=== PATIENT | male | born 1960 | race Caucasian/White ===

== ENCOUNTER 2019-02-05 14:30 | Inpatient (IN) ==
[2019-02-05] MEDS ORDERED: MORPHINE IV ONE ×2 (15:24→16:34)
[2019-02-05] MEDS ORDERED: ZOFRAN IM ONE (15:25)
--- NOTE | 2019-02-05 15:34 | PROVIDER DOCUMENTATION ---
HPI-Abdominal Pain/GI Problem - General Chief Complaint: Abdominal Pain Stated Complaint: ABDOMINAL PAIN Time Seen by Provider: 02/05/19 15:11 Source: patient, family Allergies/Adverse Reactions: Patient Allergies Allergy/AdvReac Type Severity Reaction Status Date / Time No Known Allergies Allergy Verified 11/28/18 09:48 Home Medications: Home Medication List Medication Instructions Recorded Confirmed Last Taken Type PRAVAstatin [Pravachol] 40 mg PO QHS 11/28/18 02/05/19 Unknown History Lansoprazole 30 mg PO QHS 02/05/19 02/05/19 Unknown History - History of Present Illness-ABD Nature of Presenting Problems: 58yo male with PMH of kidney stones and colon infection with resection presents with acute onset of abdominal pain. The patient reports onset of the pain at 7am with radiation to the back and association with nausea. The pain was modified with movment. The patient denies diarrhea or bloody stools. Abdominal Pain Onset Location: reports: generalized abdomen Pain Radiation: reports: back Onset/Duration: reports: this morning Timing: reports: still present Modifying Factors: improves with: movement Associated Symptoms: reports: back/neck pain, nausea Last BM: this morning Rectal Bleeding: reports: none # of Vomiting Episodes: 0 Review of Systems - Adult - REVIEW OF SYSTEMS - ADULT Constitutional: reports: fever (unmeasured) Eyes: denies: blurred vision Cardiovascular: reports: chest pain Respiratory: reports: cough Gastrointestinal: reports: abdominal pain, nausea. denies: diarrhea, vomiting Genitourinary: reports: dysuria Musculoskeletal: reports: back pain Integumentary: denies: rash Neurological: reports: numbness Allergic/Immunologic: reports: no symptoms reported (no allergies) Past History - Adult - PAST MEDICAL HISTORY-ADULT Review of Records: reports: Old Records Reviewed Cardiovascular: reports: hyperlipidemia Respiratory: reports: denies history Gastrointestinal: reports: other (colon resection after infection) Genitourinary: reports: kidney stones Musculoskeletal: reports: chronic pain Neurological: reports: denies history Psychiatric: reports: denies history Endocrine/Immune: reports: denies history Other Conditions: reports: denies history - PRIOR SURGERIES/PROCEDURES Surgical/Procedure History: reports: other (colon resection for cancer) - FAMILY HISTORY Family History: CVA/TIA, other (CAD) - SOCIAL HISTORY Smoking: denies Substance Use: other (Denies) Alcohol Use Frequency: never (Denies) Physical Exam-General - CONSTITUTIONAL General Appearance: alert, mild distress - EYES Eyes: negative: scleral icterus - HEAD, EARS, NOSE, MOUTH & THROAT HENMT: normocephalic/atraumatic, moist mucous membranes - NECK Neck: supple - RESPIRATORY Respiratory: lungs clear, normal breath sounds. negative: crackles, wheezing - CARDIOVASCULAR Cardiovascular: regular rate, rhythm, no edema - GASTROINTESTINAL (ABDOMEN) Abdominal Exam: soft, rebound, tenderness - MUSCULOSKELETAL Back Exam: CVA tenderness - SKIN Integumentary: normal color, warm/dry - NEUROLOGIC Neurologic: grossly normal - PSYCHIATRIC Psych/Mental Status: normal mood/affect Progress - PLAN OF CARE/RESULTS Progress/Plan/Lab Results: Vital Signs - 8 hr 02/05/19 14:35 Temperature 98.0 F Pulse Rate 68 Respiratory Rate 18 Blood Pressure 136/86 O2 Sat by Pulse Oximetry 99 Orders Category Date Time Status CHEST-2 VIEWS [RAD] Stat Exams 02/05/19 15:[address] ABDOMEN W/O CONTRAST [CT] Stat Exams 02/05/19 15:28 Ordered CBC WITH ELECTRONIC DIFF [HEME] Stat Lab 02/05/19 15:22 Uncollected COMPREHENSIVE METABOLIC PANEL [CHEM] Stat Lab 02/05/19 15:23 Uncollected LIPASE [CHEM] Stat Lab 02/05/19 15:29 Uncollected TROPONIN T Stat Lab 02/05/19 15:23 Uncollected URINALYSIS W/POSS RFLX CULT [URINALYSIS] Stat Lab 02/05/19 15:24 Uncollected Morphine Med 02/05/19 15:24 Once 2 mg IV NOW ONE Ondansetron [Zofran] Med 02/05/19 15:25 Once 4 mg IM NOW ONE 58yo male presents with acute onset abdominal pain with radiation to the back. - Ddx: diverticulitis, appendicitus, kidney stones, bowel obstruction, pancreatitis - Plan: Discussed with supervisor machine workers Dr. Benito, will order CBC, CMP, lipase, CXR, CT abd/pelvis, will give pain and anti-emetic control Result Diagrams: 02/05/19 14:59 02/05/19 14:59 - REASSESSMENT Reassessment #1 Status: unchanged (Mild improvement in pain. Discussed CT results and possible pancreatitis with patient and family. Will start fluids and further pain control. Awaiting lipase.) Departure - Departure Date of Disposition Decision: 02/05/19 Time of Disposition Decision: 18:11 DIAGNOSIS: Acute pancreatitis Qualifiers: Pancreatitis type: unspecified pancreatitis type Acute pancreatitis complication: unspecified Qualified Code(s): K85.90 - Acute pancreatitis without necrosis or infection, unspecified Disposition: ADMITTED INPATIENT 09 Certified Medical Emergency: Emergent Condition: Good Referrals and Follow-Ups: Dell Johnson MD [Primary Care Provider] - - Critical Care Note This patient required my direct & personal management of CC.: No Attestation - Physician/ CASSIE Attestation Patient care was provided by Advanced Practice Provider:: No The physician spent face to face time with patient:: Yes Advanced Practice Provider documentation review:: Supervising physician onsite and consulted in the evaluation and care of this patient. The physician did have a face to face encounter with the patient.
--- NOTE | 2019-02-05 15:43 | Diag Imaging Result Doc PS360 ---
CHEST-2 VIEWS - 02/05/2019 INDICATION: abdominal pain COMPARISON: 02/25/2014 FINDINGS: The lungs are normally expanded and clear. Heart size and mediastinal contours are normal. No pneumothorax or pleural effusion. Stable small calcified granuloma in the right left midlung. IMPRESSION: Negative exam. Electronically signed by Sincere Montague 02/05/2019 3:40 PM
[2019-02-05 15:48] LABS: BASO# 0.03 X1000 (0.0-0.2); BASO% 0.2 % (0.0-0.8); EOS% 0.8 % (0.0-10.0); HEMATOCRIT 44.2 % (42.0-52.0); HEMOGLOBIN 15.5 g/dL (14.0-18.0); IMM GRAN# 0.02 X1000 (0.0-0.04); IMM GRAN% 0.2 % (0.0-0.5); LYMPH# 1.88 X1000 (1.2-3.4); LYMPH% 14.4 % (20.5-51.1); MCH 28.1 PG (27-31); MCHC 35.1 g/dL (33-37); MCV 80.2 FL (81-99); MONO# 0.77 X1000 (0.11-0.59); MONO% 5.9 % (1.7-9.3); MPV 9.4 FL (7.4-10.4); NEUT# 10.23 X1000 (1.4-6.5); NEUT% 78.5 % (42.2-75.2); PLT 263 X1000 (130-400); RBC 5.51 XMIL (4.7-6.1); RDW 13.2 % (11.5-14.5); WBC 13.03 X1000 (4.8-10.8)
[2019-02-05] MEDS ORDERED: ZOFRAN IV ONE (15:50)
[2019-02-05 16:00] LABS: URINE SOURCE CLEAN CATCH
[2019-02-05 16:01] LABS: BILIRUBIN URINE NEGATIVE (NEGATIVE); BLOOD URINE NEGATIVE (NEGATIVE); COLOR YELLOW; GLUCOSE URINE NEGATIVE (NEGATIVE); KETONE URINE 40 mg/dL (NEGATIVE); LEUKOCYTES URINE NEGATIVE (NEGATIVE); NITRITE URINE NEGATIVE (NEGATIVE); PROTEIN URINE TRACE mg/dL (NEGATIVE); SP GRAVITY URINE 1.015; TURBIDITY URINE CLEAR (CLEAR); UR EPITHELIAL CELLS <10 /HPF (<10); URINE BACTERIA NEGATIVE /HPF; URINE RBC <10 /HPF (<10); URINE WBC <10 /HPF (<10); UROBILINOGEN URINE NORMAL (NORMAL)
--- NOTE | 2019-02-05 16:08 | Diag Imaging Result Doc PS360 ---
EXAM: CT ABDOMEN/PELVIS W/O CONTRAST INDICATION: abdominal pain TECHNIQUE: This exam was performed using automated exposure control, adjustment of mA or kV according to patient size, and/or use of iterative reconstruction technique. COMPARISON: None. FINDINGS: There is inflammatory stranding in the mesentery that appears to emanate from the uncinate process of the pancreas suggesting acute pancreatitis. The adjacent duodenum is thickened but this is probably secondary from pancreatitis rather than primary duodenitis. Please correlate with laboratory values. There is a small volume of nonloculated free fluid tracking into the pelvis on the right. No discrete pancreatic abscess can be identified given the limitations of an unenhanced CT. The gallbladder appears normal. There is no biliary dilatation and no pancreatic ductal dilatation. The liver, spleen, adrenal glands, kidneys, and urinary bladder are unremarkable. The appendix is normal. Aside from the duodenum, the remainder of the GI tract is grossly unremarkable as imaged. IMPRESSION: Inflammatory changes around the uncinate process of the pancreas and the duodenum that is likely due to acute pancreatitis. Correlate with laboratory values and see above discussion. Electronically signed by Akash Zapata 02/05/2019 4:06 PM
[2019-02-05 16:09] LABS: AGAP 15; ALB/GLOB RATIO 1.8; ALBUMIN 4.8 g/dL (3.5-5.0); ALKALINE PHOSPHATASE 74 U/L (32-122); BUN 14 mg/dL (8-22); CALCIUM 10.1 mg/dL (8.8-10.2); CHLORIDE 100 mmol/L (98-107); COSMO 274; CREATININE 0.8 mg/dL (0.7-1.2); ESTIMATED GFR > 60; GLUCOSE 93 mg/dL (70-104); GOT 22 U/L (10-34); GPT 19 U/L (10-44); POTASSIUM 4.2 mmol/L (3.5-5.1); SODIUM 137 mmol/L (136-145); TCO2 22 mmol/L (25-35); TOTAL BILIRUBIN 0.83 mg/dL (0.20-1.00); TOTAL PROTEIN 7.5 g/dL (6.3-8.3)
--- NOTE | 2019-02-05 16:19 | EKG Report ---
Test Performed on : 02/05/2019 3:11:50 PM Test Reason : ED. No order in [place] Blood Pressure : / mmHG Vent. Rate : 062 BPM Atrial Rate : 062 BPM P-R Int : 160 ms QRS Dur : 112 ms QT Int : 442 ms P-R-T Axes : 048 -03 036 degrees QTc Int : 448 ms Normal sinus rhythm. Normal ECG When compared with ECG of 13-AUG-2007 08:54, Incomplete right bundle branch block is no longer present Unconfirmed Result
[2019-02-05] MEDS ORDERED: LR 1,000 ML IV ONE ×3 (16:23→19:53)
[2019-02-05] MEDS ORDERED: SODIUM CHLORIDE 0.9% INJ SCH (18:45)
--- NOTE | 2019-02-05 19:08 | HISTORY AND PHYSICAL ---
CHIEF COMPLAINT: Abdominal pain. HISTORY OF PRESENT ILLNESS: This is a 58-year-old male with history of dyslipidemia who presents from home with abdominal pain really just starting this morning. He has not had previous episodes of abdominal pain, biliary colic or anything of the such. He describes pain as 10/10, sharp, really in the direct center of his abdomen associated with nausea. Eating made it worse. He could not even tolerate crackers. He did not throw up per se but the pain just got worse with eating. The pain radiated straight to his back. He denies any gallbladder disease. He states he does not drink. He never drinks. Pain even now is about 5/10 after morphine. He came in for evaluation and was found to have a lipase of greater than [address] findings consistent with acute pancreatitis of his uncinate process. He also had some duodenal inflammation and he was admitted for acute pancreatitis. PAST MEDICAL HISTORY: 1. Nephrolithiasis. 2. Hyperlipidemia. 3. GERD. PAST SURGICAL HISTORY: He has had a partial colon resection related to a colonic tear it is unclear exactly what that was related to, that was remotely. He has had a hernia repair when he was a 5th grader. FAMILY HISTORY: No gallbladder, no colon cancer, no IBD. No pancreatitis. Mother had CAD, CVA and hypertension. SOCIAL HISTORY: Again no smoking, no ethanol. He works in construction I believe, he does heavy labor. ALLERGIES: No known drug allergies. MEDICATIONS: He is on pravastatin 40 and lansoprazole 30. REVIEW OF SYSTEMS: No weight loss. No chest pain. No dyspnea. No bleeding. No hematochezia. No melena. No syncope. Otherwise negative times a 10 point review of systems. PHYSICAL EXAM: Blood pressure is 136/86, heart rate of 68, respiratory rate 18, temperature 98 degrees. GENERAL: Well-developed male in moderate pain. HEENT: Normocephalic, atraumatic. Pupils equal, round, reactive to light. Extraocular movements were intact. Sclerae are anicteric. He had moist mucous membranes. NECK: Supple. CARDIOVASCULAR: Regular rate and rhythm. No murmurs, gallops, or rubs . PULMONARY: Bilateral breath sounds clear to auscultation. GI: Soft. He was diffusely tender with some voluntary guarding. No rebound. Most tenderness in his epigastrium. I did not elicit any particular right upper quadrant tenderness and he had tenderness in his upper abdomen. NEURO: Was nonfocal. Cranial nerves 2-12 were intact. MUSCULOSKELETAL: Was 5/5 in all 4 extremities. SKIN: Clean, dry, intact. He did have some varicosities in his lower extremities. LABORATORY DATA: White count of 13, hematocrit of 44. CMP normal. Lipase of greater than 3000. CT scan showed acute pancreatitis in the uncinate process. ASSESSMENT: This is a 58-year-old white male with history of dyslipidemia presenting with acute pancreatitis without any clear source. He has acute pancreatitis. 1. Acute pancreatitis. He will be admitted, made NPO. We will continue vigorous hydration, monitor his hematocrit. He may require further boluses of fluid. We will check a right upper quadrant ultrasound tomorrow to evaluate for cholelithiasis. CT scan did not show gallstones but that does not visualize pigmented gallstones very well. We will continue PPI. We will check a triglyceride level. We will check a IgG subclass level to look for IG 4. He may need an MRCP, if not improving we will get a GI opinion, especially if we do not have a clear diagnosis. The pravastatin and lansoprazole are unlikely causes of pancreatitis but it is a possibility. 2. Dyslipidemia. We will monitor his lipids. I am going to hold his statin for the time being. We will be particularly paying attention to his triglyceride level obviously. 3. Gastroesophageal reflux disease. We will continue IV PPI for the time being and follow. DISPOSITION: Pending his clinical status. He will probably be here a couple days. cc: Dell Johnson MD
[2019-02-05] MEDS: PROTONIX IV SCH (19:27)
[2019-02-05] MEDS: DILAUDID IV PRN (20:34)
[2019-02-05] MEDS: ZOFRAN IV PRN (20:34)
[2019-02-06] MEDS: DILAUDID IV PRN ×3 (03:31→20:12)
[2019-02-06 06:44] LABS: BASO# 0.01 X1000 (0.0-0.2); BASO% 0.1 % (0.0-0.8); EOS# 0.07 X1000 (0.0-0.7); EOS% 0.6 % (0.0-10.0); HEMATOCRIT 42.5 % (42.0-52.0); HEMOGLOBIN 14.7 g/dL (14.0-18.0); IMM GRAN# 0.03 X1000 (0.0-0.04); IMM GRAN% 0.3 % (0.0-0.5); LYMPH# 1.15 X1000 (1.2-3.4); LYMPH% 9.8 % (20.5-51.1); MCH 28.5 PG (27-31); MCHC 34.6 g/dL (33-37); MCV 82.4 FL (81-99); MONO# 0.81 X1000 (0.11-0.59); MONO% 6.9 % (1.7-9.3); MPV 9.3 FL (7.4-10.4); NEUT# 9.65 X1000 (1.4-6.5); NEUT% 82.3 % (42.2-75.2); PLT 213 X1000 (130-400); RBC 5.16 XMIL (4.7-6.1); RDW 13.4 % (11.5-14.5); WBC 11.72 X1000 (4.8-10.8)
[2019-02-06 06:59] LABS: AGAP 10; ALB/GLOB RATIO 1.4; ALBUMIN 3.8 g/dL (3.5-5.0); ALKALINE PHOSPHATASE 63 U/L (32-122); AMYLASE 896 U/L (20-200); BUN 11 mg/dL (8-22); CALCIUM 8.6 mg/dL (8.8-10.2); CHLORIDE 102 mmol/L (98-107); CHOLESTEROL 129 mg/dL (0-200); COSMO 275; CREATININE 0.7 mg/dL (0.7-1.2); ESTIMATED GFR > 60; GLUCOSE 92 mg/dL (70-104); GOT 16 U/L (10-34); GPT 14 U/L (10-44); HDL 63 mg/dL (35-55); LDL 53 mg/dL; POTASSIUM 4.4 mmol/L (3.5-5.1); SODIUM 138 mmol/L (136-145); TCO2 26 mmol/L (25-35); TOTAL BILIRUBIN 0.88 mg/dL (0.20-1.00); TOTAL PROTEIN 6.5 g/dL (6.3-8.3); TRIGLYCERIDES 67 mg/dL (39-160); VLDL 13 mg/dL
[2019-02-06 07:16] LABS: LIPASE 1149 U/L (13-60)
--- NOTE | 2019-02-06 12:18 | Diag Imaging Result Doc PS360 ---
EXAM: US GB < RUQ (LIMITED) INDICATION: elevated liver enzymes COMPARISON: None. FINDINGS: There are several shadowing stones layering in the gallbladder lumen. There is no evidence of gallbladder wall thickening or pericholecystic fluid. The common bile duct is normal in diameter. Sonographic Shah's sign was reported to be positive by the technologist. The liver is grossly unremarkable. Portal venous flow is hepatopetal. Much of the pancreas is obscured by bowel gas. The visualized portion is unremarkable. The IVC in the visualized portion of the aorta is unremarkable. The right kidney is grossly unremarkable. IMPRESSION: Cholelithiasis and a reported positive sonographic Shah sign. However, no gallbladder wall thickening or pericholecystic fluid is identified. Please correlate clinically. Electronically signed by Akash Zapata 02/06/2019 12:16 PM
--- NOTE | 2019-02-06 13:10 | GENERAL SURGERY CONSULTATION ---
DATE: 02/06/2019 REQUESTING PHYSICIAN: Jad Li MD REASON FOR CONSULTATION: Possible biliary pancreatitis. HISTORY OF PRESENT ILLNESS: A 58-year-old gentleman presenting to the hospital on 02/05/2019 with abdominal pain. He was seen in the Emergency Department and found to have pancreatitis. He had a CT scan that showed acute pancreatitis. He has an ultrasound that is still pending. It looks like there could be stones. No real history of alcohol intake. He has never had pain like this before. I was asked to weigh an opinion. He is feeling a little bit better than he was but he is complaining of epigastric right upper quadrant pain. PAST MEDICAL HISTORY: Includes kidney stones, hyperlipidemia, and gastroesophageal reflux disease. PAST SURGICAL HISTORY: Includes a partial colectomy and hernia repair. FAMILY HISTORY: No history of gallbladder disease. SOCIAL HISTORY: No smoking. No alcohol. ALLERGIES: None. HOME MEDICATIONS: Reviewed. REVIEW OF SYSTEMS: A full 14 point review of systems was reviewed and was negative except those specified in the HPI. PHYSICAL EXAMINATION: VITAL SIGNS: The patient is currently afebrile. His vital signs are stable. GENERAL: No acute distress. Well nourished, well developed, male who looks his stated age. HEENT: Normocephalic, atraumatic. Pupils are equal, round, and reactive to light. Mucous membranes are moist. Oropharynx benign. No scleral icterus. NECK: Supple. Trachea is midline. CARDIOVASCULAR: Regular rate and rhythm. LUNGS: Grossly clear. ABDOMEN: Soft. Tender to palpation in the right upper quadrant and epigastrium consistent with pancreatitis. EXTREMITIES: Moves all extremities. NEUROLOGIC: Grossly intact. SKIN: No signs of jaundice. VASCULAR: All extremities are perfused. LABORATORY DATA: White blood cell count is 11 which is down from admission. Bilirubin, AST, ALT, and ALK PHOS are all normal. Amylase and lipase are both elevated. CT scan was independently reviewed and radiology report reviewed. Ultrasound reviewed but ultrasound report is still pending but it looks like there is cholelithiasis to me. We await the official report. ASSESSMENT AND PLAN: A 58-year-old gentleman with pancreatitis, likely biliary. 1. Pancreatitis. At this time it is likely biliary but we will wait for the official ultrasound report. I discussed with the patient the natural course of pancreatitis and the course of treatment with nonoperative management right now and resuscitation of n.p.o. status discussing the possibility of maybe having to remove his gallbladder. He is somewhat hesitant at this point but we will continue to follow him while he is in the hospital. I appreciate the consult. cc: Destin Friedman MD
[2019-02-06] MEDS: LR 1,000 ML IV SCH ×2 (14:11→20:11)
--- NOTE | 2019-02-06 16:01 | PROGRESS NOTE ---
DATE: 02/06/2019 SUBJECTIVE: Patient has no major complaints. OBJECTIVE: Blood pressure is stable. Still having pain. 122/73, heart rate 67, respiratory rate 20, temperature 97.6 degrees.Cardiovascular: Regular rate and rhythm. Pulmonary: Bilateral breath sounds clear to auscultation. GI: Soft, nontender, nondistended. Bowel sounds are positive. LABORATORY DATA: White count 11, hemoglobin and hematocrit 14 and 42, platelets of 213,000. Amylase 896 and lipase down to 1149. Abdominal ultrasound showed cholelithiasis but no cholecystitis. PROBLEMS: 1. Gallstone pancreatitis. We now have an etiology. I do think he will need cholecystectomy at some point at the discretion of surgery. Dr. Friedman has been consulted and we will continue to monitor and decide about surgery inpatient versus outpatient. We will continue hydration. He is still having a lot of pain so I am going to hold off on any advancement of his diet for the time being but his numbers are improved. His hematocrit is below 44% so I think his hydration status is good. We will continue fluid and pain control, nausea control. 2. Dyslipidemia. That is stable on his current medications. 3. Gastroesophageal reflux disease is stable as well. Anticipate will go back on those medications once he is stabilized. cc: Jad Li MD
[2019-02-06] MEDS: PROTONIX IV SCH (20:12)
[2019-02-07] MEDS: DILAUDID IV PRN ×5 (05:36→21:15)
[2019-02-07] MEDS: LOVENOX SUBQ SCH (05:36)
[2019-02-07] MEDS: LR 1,000 ML IV SCH ×3 (05:36→17:40)
[2019-02-07 06:14] LABS: BASO# 0.01 X1000 (0.0-0.2); BASO% 0.1 % (0.0-0.8); EOS# 0.05 X1000 (0.0-0.7); EOS% 0.4 % (0.0-10.0); HEMATOCRIT 40.1 % (42.0-52.0); HEMOGLOBIN 13.9 g/dL (14.0-18.0); IMM GRAN# 0.02 X1000 (0.0-0.04); IMM GRAN% 0.2 % (0.0-0.5); LYMPH# 0.89 X1000 (1.2-3.4); MCH 28.3 PG (27-31); MCHC 34.7 g/dL (33-37); MCV 81.7 FL (81-99); MONO# 0.97 X1000 (0.11-0.59); MONO% 7.6 % (1.7-9.3); MPV 9.4 FL (7.4-10.4); NEUT# 10.85 X1000 (1.4-6.5); NEUT% 84.7 % (42.2-75.2); PLT 206 X1000 (130-400); RBC 4.91 XMIL (4.7-6.1); WBC 12.79 X1000 (4.8-10.8)
[2019-02-07 06:51] LABS: AGAP 15; CHLORIDE 102 mmol/L (98-107); POTASSIUM 3.9 mmol/L (3.5-5.1); SODIUM 138 mmol/L (136-145); TCO2 21 mmol/L (25-35)
[2019-02-07 06:52] LABS: ALB/GLOB RATIO 1.3; ALBUMIN 3.6 g/dL (3.5-5.0); ALKALINE PHOSPHATASE 56 U/L (32-122); BUN 11 mg/dL (8-22); CALCIUM 8.7 mg/dL (8.8-10.2); COSMO 274; CREATININE 0.6 mg/dL (0.7-1.2); ESTIMATED GFR > 60; GLUCOSE 84 mg/dL (70-104); GOT 13 U/L (10-34); GPT 11 U/L (10-44); TOTAL BILIRUBIN 0.95 mg/dL (0.20-1.00); TOTAL PROTEIN 6.3 g/dL (6.3-8.3)
--- NOTE | 2019-02-07 07:27 | GENERAL SURGERY PROGRESS NOTE ---
DATE: 02/07/2019 SUBJECTIVE: The patient seems to be doing okay. His pain is improved, but he still has some discomfort. OBJECTIVE: Vital Signs: The patient is currently afebrile. His vital signs are stable. General: No acute distress. HEENT: Normocephalic, atraumatic. Pupils equal, round, reactive to light. Mucous membranes moist. Oropharynx benign. Neck: Supple. Trachea midline. Cardiovascular: Regular rate and rhythm. Lungs: Grossly clear. Abdomen: Soft. Some tenderness in the epigastrium and right upper quadrant, but no peritoneal signs. Overall improved from yesterday. Extremities: Moves all extremities. Neurologic: Grossly intact. Skin: No signs of jaundice. Vascular: All extremities perfused. LABORATORY DATA: White blood cell count is 12, which is essentially stable. Hematocrit is stable. Bilirubin, alkaline phosphatase, AST, and ALT are all normal. ASSESSMENT AND PLAN: A 58-year-old gentleman with likely biliary pancreatitis. Biliary pancreatitis. At this time, will continue supportive care. I think he still has some degree of pancreatitis still, so would like to continue to resuscitate him and wait for the pancreatitis to cool down before we consider any kind of intervention. The patient was hesitant yesterday to have any kind of surgery, but again, will need to discuss further once the patient seems to be improving. cc: Destin Friedman MD
[2019-02-07 07:28] LABS: AMYLASE 294 U/L (20-200); LIPASE 232 U/L (13-60)
[2019-02-07] MEDS ORDERED: SODIUM CHLORIDE 0.9% 10 ML ONE (14:41)
--- NOTE | 2019-02-07 17:34 | PROGRESS NOTE ---
DATE: 02/07/2019 SUBJECTIVE: Patient has no major complaints. Pain is present but not much improved. OBJECTIVE: Vitals: Blood pressure 127/70, heart rate of 74, respiratory rate 18, temperature 98 degrees. Cardiovascular: Regular rate and rhythm. Pulmonary: Bilateral breath sounds clear to auscultation. GI: Soft, nontender, nondistended. Bowel sounds are positive. LABORATORY DATA: White count is 12, hemoglobin and hematocrit 13 and 40, platelets 206,000. Lipase down to 232. PROBLEM LIST: Gallstone or biliary pancreatitis. We will continue to volume resuscitate. The patient at this point, at least he told me personally, is planning to get the procedure done. We will continue liquids. I am going to advance his diet a little bit, and Surgery will re-evaluate for surgery tomorrow. DISPOSITION: Pending clinical status, we will continue to follow closely. cc: Jad Li MD
--- NOTE | 2019-02-07 18:43 | GENERAL SURGERY PROGRESS NOTE ---
DATE: 02/07/2019 SUBJECTIVE: Patient feeling better. Labs are improving. He is amenable to laparoscopic cholecystectomy. We will try to do that tomorrow. Discussed with him the risks, benefits, and alternatives. The risks including, but not limited to bleeding, infection, risk of anesthesia, risk of common bile duct injury and bile leak, risk of injuring to other organs. We will plan on doing this in the morning. cc: Destin Friedman MD
[2019-02-07] MEDS: PROTONIX IV SCH (19:51)
[2019-02-08] MEDS: LR 1,000 ML IV SCH ×3 (00:39→20:24)
[2019-02-08] MEDS: DILAUDID IV PRN ×3 (02:13→20:23)
[2019-02-08] MEDS: LOVENOX SUBQ SCH (06:30)
[2019-02-08 06:48] LABS: HEMATOCRIT 39.2 % (42.0-52.0); HEMOGLOBIN 13.5 g/dL (14.0-18.0); LYMPH% 8.8 % (20.5-51.1); MCH 28.2 PG (27-31); MCHC 34.4 g/dL (33-37); NEUT% 81.8 % (42.2-75.2); PLT 188 X1000 (130-400); RBC 4.78 XMIL (4.7-6.1); RDW 12.9 % (11.5-14.5); WBC 11.06 X1000 (4.8-10.8)
[2019-02-08 06:49] LABS: BASO# 0.01 X1000 (0.0-0.2); BASO% 0.1 % (0.0-0.8); EOS# 0.12 X1000 (0.0-0.7); EOS% 1.1 % (0.0-10.0); IMM GRAN# 0.02 X1000 (0.0-0.04); IMM GRAN% 0.2 % (0.0-0.5); LYMPH# 0.97 X1000 (1.2-3.4); MONO# 0.88 X1000 (0.11-0.59); NEUT# 9.06 X1000 (1.4-6.5)
[2019-02-08 07:10] LABS: SODIUM 137 mmol/L (136-145)
[2019-02-08 07:11] LABS: AGAP 13; ALB/GLOB RATIO 1.1; ALBUMIN 3.4 g/dL (3.5-5.0); ALKALINE PHOSPHATASE 61 U/L (32-122); BUN 8 mg/dL (8-22); CALCIUM 8.8 mg/dL (8.8-10.2); CHLORIDE 100 mmol/L (98-107); COSMO 272; CREATININE 0.7 mg/dL (0.7-1.2); ESTIMATED GFR > 60; GLUCOSE 88 mg/dL (70-104); GOT 13 U/L (10-34); GPT 8 U/L (10-44); TCO2 24 mmol/L (25-35); TOTAL BILIRUBIN 0.75 mg/dL (0.20-1.00); TOTAL PROTEIN 6.4 g/dL (6.3-8.3)
--- NOTE | 2019-02-08 07:14 | GENERAL SURGERY PROGRESS NOTE ---
DATE: 02/08/2019 SUBJECTIVE: Patient doing okay. He is ready for surgery. OBJECTIVE: Vital Signs: The patient is currently afebrile. His vital signs are stable. General: No acute distress. HEENT: Normocephalic, atraumatic. Pupils equal, round, reactive to light. Mucous membranes moist. Oropharynx benign. Neck: Supple. Trachea midline. Cardiovascular: Regular rate and rhythm. Lungs: Grossly clear. Abdomen: Soft, nontender at this point. Extremities: Moves all extremities. Neurologic: Grossly intact. Skin: No signs of jaundice. Vascular: All extremities perfused. ASSESSMENT AND PLAN: A 58-year-old gentleman with biliary pancreatitis. Biliary pancreatitis. At this time, will plan on surgical intervention today. Discussed with him and documented yesterday, the risks, benefits, and alternatives. Will proceed with surgery today. cc: Destin Friedman MD
[2019-02-08] MEDS: ZOFRAN IV PRN ×2 (07:48→20:23)
[2019-02-08] MEDS ORDERED: MEFOXIN 2 GM/NS 2 GM/50 ML IVPB IV ONE (08:00)
[2019-02-08] MEDS ORDERED: XYLOCAINE-MPF 2% ONE (08:29)
[2019-02-08] MEDS ORDERED: QUELICIN (DOSE) ONE ×2 (08:29→08:48)
[2019-02-08] MEDS ORDERED: DIPRIVAN 1% ONE (08:30)
[2019-02-08] MEDS ORDERED: LR 1,000 ML ONE (08:56)
[2019-02-08] MEDS ORDERED: SENSORCAINE 0.25%/EPI 1:200,000 ONE (08:56)
[2019-02-08] MEDS ORDERED: ZEMURON ONE (09:09)
[2019-02-08] MEDS: SODIUM CHLORIDE 0.9% ONE ×2 (09:28→09:57)
[2019-02-08] MEDS ORDERED: NEOSTIGMINE ONE (09:50)
[2019-02-08] MEDS ORDERED: ROBINUL ONE (09:50)
[2019-02-08] MEDS: DILAUDID ONE (10:08)
[2019-02-08] MEDS: TORADOL ONE (10:09)
[2019-02-08] MEDS: NORCO-10 ONE (10:33)
--- NOTE | 2019-02-08 10:57 | OPERATIVE NOTE ---
PROCEDURE DATE: 02/08/2019 PREOPERATIVE DIAGNOSIS: Biliary pancreatitis. POSTOPERATIVE DIAGNOSIS: Biliary pancreatitis. PROCEDURE PERFORMED: Laparoscopic cholecystectomy. SURGEON: Destin Friedman MD TOY MECHANIC: None. ANESTHESIA: General endotracheal. INTRAOPERATIVE FINDINGS: Distended gallbladder, but cystic duct looked normal. COMPLICATIONS: None at time of dictation. ESTIMATED BLOOD LOSS: 10 mL. SPECIMENS REMOVED: Gallbladder. BRIEF HISTORY: A 58-year-old gentleman presenting with biliary pancreatitis. He improved clinically. I felt he would benefit from a cholecystectomy. The risks, benefits, and alternatives were discussed and documented in the chart. All questions answered. DESCRIPTION OF PROCEDURE: After informed consent was obtained, patient brought to the operative theatre, transferred to the operating table and placed in supine position. General endotracheal anesthesia was then performed without complication. A formal time out was then performed confirming patient, date, procedure. All were in agreement. At that time, attention was given to the abdomen. An infraumbilical incision was made, through which using Optiview technique we inserted 11 mm trocar and connected to insufflation. Pneumoperitoneum was achieved. Under direct visualization, we placed 3 more trocars, all 5 mm, 1 in the subxiphoid and 2 in the right upper quadrant. Using these, the gallbladder was identified. It was distended, consistent with some reactive cholecystitis. We retracted it cephalad. I dissected out the cystic duct and cystic artery to achieve the critical view of safety. We doubly clipped and ligated the cystic duct and cystic artery. The cystic duct did not appear to be enlarged. We then dissected the gallbladder off the gallbladder fossa. We did drain some bile, but we were able to place the gallbladder into an Endo Catch and brought it out through an infraumbilical incision. We then irrigated out the abdomen until suction fluid was clear. The infraumbilical incision and fascial defects were offset so we did not have to close it with a Justus-Thad device. We irrigated out the abdomen with copious fluid until the suction fluid was clear. We then closed all skin incisions with 4-0 Monocryl after removing all trocars, disconnected insufflation. The patient tolerated the procedure well and was transferred back to the recovery room. cc: Destin Friedman MD
--- NOTE | 2019-02-08 18:32 | PROGRESS NOTE ---
DATE: 02/08/2019 SUBJECTIVE: Patient has no major complaints. OBJECTIVE: Blood pressure 122/69, heart rate of 96, respiratory rate of 15.Cardiovascular: Regular rate and rhythm. Pulmonary: Bilateral breath sounds clear to auscultation. GI: Soft, nontender, nondistended. Bowel sounds are positive. LABORATORY DATA: White count is 11, hemoglobin and hematocrit 13, 39, platelets 188,000. CMP normal. Lipase is 91. PROBLEM LIST: 1. Gallstone pancreatitis. Will continue IV fluids, pain medications, he seems to be doing better. Dr. Friedman has stepped in and we went ahead and pursued laparoscopic cholecystectomy tomorrow. Greatly appreciate his urgent intervention and he seems to be doing okay. Hopefully we can get him home soon. It did not appear that patient had intraoperative cholangiogram but he does not really have any other clear evidence of and anticipate discharge tomorrow. cc: Jad Li MD
[2019-02-08] MEDS: PROTONIX IV SCH (20:24)
[2019-02-08] MEDS ORDERED: PRAVACHOL PO SCH (21:00)
[2019-02-08] MEDS ORDERED: PRILOSEC PO SCH (21:00)
[2019-02-09] MEDS: NORCO-10 PO PRN ×2 (00:46→08:07)
[2019-02-09] MEDS: DILAUDID IV PRN (04:50)
[2019-02-09] MEDS: LOVENOX SUBQ SCH (06:02)
[2019-02-09 06:26] LABS: BASO# 0.01 X1000 (0.0-0.2); BASO% 0.1 % (0.0-0.8); EOS# 0.14 X1000 (0.0-0.7); EOS% 1.4 % (0.0-10.0); HEMOGLOBIN 12.7 g/dL (14.0-18.0); IMM GRAN# 0.02 X1000 (0.0-0.04); IMM GRAN% 0.2 % (0.0-0.5); LYMPH% 8.8 % (20.5-51.1); MCH 28.5 PG (27-31); MCHC 34.3 g/dL (33-37); MCV 83.1 FL (81-99); MONO# 0.96 X1000 (0.11-0.59); MONO% 9.4 % (1.7-9.3); MPV 9.2 FL (7.4-10.4); NEUT# 8.18 X1000 (1.4-6.5); NEUT% 80.1 % (42.2-75.2); PLT 198 X1000 (130-400); RBC 4.45 XMIL (4.7-6.1); WBC 10.21 X1000 (4.8-10.8)
--- NOTE | 2019-02-09 06:32 | GENERAL SURGERY PROGRESS NOTE ---
DATE: 02/09/2019 SUBJECTIVE: Patient doing well. He is ready to go home. OBJECTIVE: Vital Signs: Patient is currently afebrile. His vital signs stable. General: No acute distress. Cardiovascular: Regular rhythm. Lungs: Grossly clear. Abdomen: Soft, appropriately tender. ASSESSMENT AND PLAN: A 58-year-old currently postoperative day #1 from laparoscopic cholecystectomy for biliary pancreatitis. Postoperative state. At this time, patient seems to be doing okay. We will plan on discharge today if okay with the hospitalist. Prescriptions are in the chart. cc: Destin Friedman MD
[2019-02-09 06:48] LABS: AGAP 11; ALKALINE PHOSPHATASE 59 U/L (32-122); BUN 6 mg/dL (8-22); CALCIUM 8.4 mg/dL (8.8-10.2); CHLORIDE 101 mmol/L (98-107); COSMO 277; CREATININE 0.7 mg/dL (0.7-1.2); ESTIMATED GFR > 60; GLUCOSE 99 mg/dL (70-104); GOT 69 U/L (10-34); GPT 46 U/L (10-44); POTASSIUM 4.3 mmol/L (3.5-5.1); SODIUM 140 mmol/L (136-145); TCO2 28 mmol/L (25-35); TOTAL BILIRUBIN 0.66 mg/dL (0.20-1.00)
[2019-02-09] MEDS: TORADOL ONE (07:02)
[2019-02-09] MEDS: DILAUDID ONE (07:02)
[2019-02-09] MEDS: NORCO-10 ONE (07:03)
[2019-02-09 08:11] VITALS: BP 123/67
--- NOTE | 2019-02-09 15:36 | DISCHARGE SUMMARY ---
ADMISSION DATE: 02/05/2019 DISCHARGE DATE: 02/09/2019 DISCHARGE DIAGNOSIS: Gallstone pancreatitis. ADMISSION DIAGNOSIS: Acute pancreatitis. PROCEDURE: Laparoscopic cholecystectomy. HOSPITAL COURSE: Briefly, this is a 58-year-old male, really no significant risk factors for pancreatitis, who presented with abdominal pain, very severe abdominal pain. He had pretty significant pancreatitis with lipase over 3000. Pancreatitis noted in the uncinate process of his pancreas. He does have dyslipidemia. Really no other risk factors. No gallstones. No alcohol history. CT scan just confirmed pancreatitis. He was admitted for treatment and workup. Workup is an ultrasound clearly showed cholelithiasis. He also had a positive Shah sign, but there was no cholecystitis. Surgery was consulted and the patient was watched for several days to allow the pancreatitis to kind of convalesce before we decide to do on surgery. Patient was also hesitant to per se pursue surgery as well, but lipase continued to trend downward, actually was normal at the time of discharge went from 1149 to 232. He had no elevation in his liver enzymes, which would suggest against any type of choledocholithiasis, but in any case patient stabilized. Although, postop he did have a little bit of elevation in his liver enzymes, but that may have been just surgery 69, 46. In any case, the patient underwent surgery on the 2nd without difficulty. He was doing well the next day. Findings showed a distended gallbladder with gallstones with a normal cystic duct. Plan will be to discharge home today. Follow up with Dr. Friedman as an outpatient. He was advised against NSAIDs, alcohol. Return for worsening pain. Of note, if there is concern about choledocholithiasis if his liver enzymes start to trend upwards, I would strongly consider an MRCP to make sure that there is not any biliary duct issues, but there was not any clear evidence of that on any of the imaging he had since he was here. DISCHARGE CONDITION: Stable DISCHARGE MEDICATIONS: He will go home on lansoprazole 30 at bedtime, Pravachol 40, and then Dr. Friedman order [place] for him for pain. DISCHARGE INSTRUCTIONS: Return for worsening pain, nausea, vomiting, swelling. Return to see Dr. Friedman in a week. Dr. Dell Johnson 1 to 2 weeks. Would repeat liver enzymes at that time. Thirty-five minute discharge. cc: Jad Li MD
== END 2019-02-09 11:40 | disposition home or self-care (01) | DRG 419 ==
LOC: ED 14:30 → 3N 19:11
PROVIDERS: ATTEND Internal Medicine

== ENCOUNTER 2019-05-10 09:57 | Inpatient (IN) ==
[2019-05-10] MEDS ORDERED: ZOFRAN IV ONE (10:23)
[2019-05-10] MEDS ORDERED: DILAUDID IV ONE (10:23)
--- NOTE | 2019-05-10 10:44 | EKG Report ---
Test Performed on : 05/10/2019 10:12:07 AM Test Reason : EPIGASTRIC PAIN Blood Pressure : / mmHG Vent. Rate : 053 BPM Atrial Rate : 053 BPM P-R Int : 144 ms QRS Dur : 104 ms QT Int : 468 ms P-R-T Axes : 016 -18 -09 degrees QTc Int : 439 ms Sinus bradycardia. Otherwise normal ECG When compared with ECG of 05-FEB-2019 15:11, Inverted T waves have replaced nonspecific T wave abnormality in Inferior leads Unconfirmed Result
[2019-05-10 11:02] LABS: AGAP 14; ALB/GLOB RATIO 1.7; ALBUMIN 4.5 g/dL (3.5-5.0); ALKALINE PHOSPHATASE 80 U/L (32-122); BUN 14 mg/dL (8-22); CALCIUM 9.5 mg/dL (8.8-10.2); CHLORIDE 102 mmol/L (98-107); COSMO 279; CREATININE 0.9 mg/dL (0.7-1.2); ESTIMATED GFR > 60; GLUCOSE 109 mg/dL (70-104); GOT 27 U/L (10-34); GPT 28 U/L (10-44); SODIUM 139 mmol/L (136-145); TCO2 23 mmol/L (25-35); TOTAL BILIRUBIN 0.76 mg/dL (0.20-1.00); TOTAL PROTEIN 7.2 g/dL (6.3-8.3)
[2019-05-10 11:06] LABS: BASO# 0.01 X1000 (0.0-0.2); BASO% 0.1 % (0.0-0.8); EOS# 0.02 X1000 (0.0-0.7); EOS% 0.1 % (0.0-10.0); HEMATOCRIT 44.8 % (42.0-52.0); HEMOGLOBIN 15.2 g/dL (14.0-18.0); IMM GRAN# 0.02 X1000 (0.0-0.04); IMM GRAN% 0.1 % (0.0-0.5); LYMPH# 1.02 X1000 (1.2-3.4); LYMPH% 7.3 % (20.5-51.1); MCH 27.7 PG (27-31); MCHC 33.9 g/dL (33-37); MCV 81.6 FL (81-99); MONO# 0.87 X1000 (0.11-0.59); MONO% 6.3 % (1.7-9.3); MPV 8.9 FL (7.4-10.4); NEUT# 11.98 X1000 (1.4-6.5); NEUT% 86.1 % (42.2-75.2); PLT 248 X1000 (130-400); RBC 5.49 XMIL (4.7-6.1); RDW 12.9 % (11.5-14.5); WBC 13.92 X1000 (4.8-10.8)
[2019-05-10 11:08] LABS: AMYLASE 1879 U/L (20-200); LIPASE 2174 U/L (13-60)
[2019-05-10 11:10] LABS: URINE SOURCE CLEAN CATCH
[2019-05-10 11:17] LABS: BILIRUBIN URINE NEGATIVE (NEGATIVE); BLOOD URINE NEGATIVE (NEGATIVE); COLOR YELLOW; GLUCOSE URINE NEGATIVE (NEGATIVE); KETONE URINE 20 mg/dL (NEGATIVE); LEUKOCYTES URINE NEGATIVE (NEGATIVE); NITRITE URINE NEGATIVE (NEGATIVE); PH URINE 8.5; PROTEIN URINE 100 mg/dL (NEGATIVE); SP GRAVITY URINE 1.036; TURBIDITY URINE CLEAR (CLEAR); UROBILINOGEN URINE 3 mg/dL (NORMAL)
[2019-05-10 11:19] LABS: UR EPITHELIAL CELLS <10 /HPF (<10); URINE BACTERIA NEGATIVE /HPF; URINE RBC <10 /HPF (<10); URINE WBC <10 /HPF (<10)
--- NOTE | 2019-05-10 11:51 | Diag Imaging Result Doc PS360 ---
CT ABD/PELVIS W/IV CONT ONLY - 05/10/2019 INDICATION: possible pancreatitis, abdo pain COMPARISON: 02/05/2019 FINDINGS: There is some dependent atelectasis in the lung bases. There is a small granuloma in the lateral left lung base. Heart size is normal with no pericardial effusion. There are cholecystectomy clips. No biliary dilation. Common bile duct is normal. There is diffuse extensive inflammatory stranding and significant edema all around the pancreas and retroperitoneum. There is some indistinct fluid in the anterior pararenal spaces bilaterally. There is some trace pelvic free fluid as well. No bowel obstruction or inflammation. No free air. Normal appendix. Other abdominal organs are all normal. Bones are intact and well mineralized. IMPRESSION: Severe acute pancreatitis with indistinct retroperitoneal fluid. This exam was performed using automated exposure control, adjustment of mA or kV according to patient size, and/or use of iterative reconstruction technique Electronically signed by Sincere Montague 05/10/2019 11:49 AM
--- NOTE | 2019-05-10 12:05 | PROVIDER DOCUMENTATION ---
This chart was entered by Tamica Powers Scribe, acting as scribe for Kendell Shahid MD. HPI-Abdominal Pain/GI Problem - General Chief Complaint: Epigastric Pain Stated Complaint: UPPER ABD PAIN Time Seen by Provider: 05/10/19 10:08 Source: patient Allergies/Adverse Reactions: Patient Allergies Allergy/AdvReac Type Severity Reaction Status Date / Time No Known Allergies Allergy Verified 05/10/19 10:37 Home Medications: Home Medication List Medication Instructions Recorded Confirmed Last Taken Type PRAVAstatin [Pravachol] 40 mg PO QHS 11/28/18 05/10/19 05/09/19 History Lansoprazole 30 mg PO QHS 02/05/19 05/10/19 05/09/19 History Hydrocodone/Acetaminophen [[place] 1 ea PO Q4-6H PRN PRN #30 tab 02/09/19 05/10/19 05/10/19 Rx 10-325 Tablet] 0900 - History of Present Illness-ABD Nature of Presenting Problems: 59yom presents to ED cc sharp abdominal pain that woke him from sleep at 2am, nausea and 1 episode of vomiting. Pt reports he talked with PCP/Dr. Johnson office and was told to come to ED for evaluation of pancreatitis b/c he had it in January. Pt denies D/C/CP or bad food. Pt has hx of GERD and hyperlipidemia. Abdominal Pain Onset Location: reports: generalized abdomen Quality of Pain: reports: sharp Severity in ED: reports: moderate Onset/Duration: reports: this morning (2am) Timing: reports: still present, getting worse Activities at Onset: reports: sleep Exposure to sick contacts?: No Modifying Factors: improves with: nothing Associated Symptoms: reports: nausea, vomiting (1x). denies: constipation, diarrhea # of Vomiting Episodes: 1 Emesis Description: reports: clear Bruising or Bleeding Gums?: No Similar Symptoms Previously?: Yes Recently seen or treated by another doctor?: Yes (seen in ED 02/05/19) Review of Systems - Adult - REVIEW OF SYSTEMS - ADULT Constitutional: reports: see HPI. denies: chills, fever, fatique Eyes: reports: no symptoms reported Ears, Nose, Mouth & Throat: reports: no symptoms reported Cardiovascular: reports: see HPI. denies: chest pain, palpitations Respiratory: reports: no symptoms reported Gastrointestinal: reports: see HPI, abdominal pain, nausea, vomiting (1x). denies: constipation, diarrhea Genitourinary: reports: no symptoms reported Musculoskeletal: reports: no symptoms reported Integumentary: reports: no symptoms reported Neurological: reports: no symptoms reported Psychiatric: reports: no symptoms reported Endocrine: reports: no symptoms reported Hematologic/Lymphatic: reports: no symptoms reported Allergic/Immunologic: reports: no symptoms reported All Other Systems: Reviewed and Negative Past History - Adult - PAST MEDICAL HISTORY-ADULT Review of Records: reports: Nursing Assessment Review, Medications Reviewed, Social history reviewed & non-contributory. Major Childhood Illnesses: reports: denies history Cardiovascular: reports: hyperlipidemia Respiratory: reports: denies history Gastrointestinal: reports: other (colon resection after infection) Obstetrical/Gynecological: reports: denies history Genitourinary: reports: kidney stones Musculoskeletal: reports: chronic pain Neurological: reports: denies history Psychiatric: reports: denies history Endocrine/Immune: reports: denies history Other Conditions: reports: denies history - PRIOR SURGERIES/PROCEDURES Surgical/Procedure History: reports: other (colon resection for cancer) - IMMUNIZATION STATUS Childhood Immunizations: See Nurse Assessment Flu Vaccine: See Nurse Assessment - FAMILY HISTORY Family History: CVA/TIA, other (CAD) - SOCIAL HISTORY Smoking: denies Physical Exam-General - PHYSICAL EXAM-ADULT Initial Vital Signs Reviewed: Yes - CONSTITUTIONAL General Appearance: alert, mild distress. negative: anxious, combative - EYES Eyes: PERRL/EOMI, pink conjunctivae. negative: photophobia - HEAD, EARS, NOSE, MOUTH & THROAT HENMT: normocephalic/atraumatic, moist mucous membranes. negative: angioedema - NECK Neck: normal inspection - RESPIRATORY Respiratory: chest non-tender, lungs clear, normal breath sounds. negative: stridor, wheezing - CARDIOVASCULAR Cardiovascular: normal peripheral pulses, regular rate, rhythm, no edema. n egative: bradycardia, tachycardia - GASTROINTESTINAL (ABDOMEN) Abdominal Exam: normal bowel sounds, soft, tenderness (generalized) - MUSCULOSKELETAL Back Exam: normal inspection, no CVA tenderness, no vertebral tenderness Extremity: normal inspection, no pedal edema, no calf tenderness, normal capillary refill. negative: deformity - SKIN Integumentary: normal color. negative: diaphoresis, jaundice, rash - PSYCHIATRIC Psych/Mental Status: normal mood/affect, oriented x 3. negative: anxious, disheveled Progress - PLAN OF CARE/RESULTS Progress/Plan/Lab Results: Vital Signs - 8 hr 05/10/19 10:05 Temperature 97.4 F L Pulse Rate 64 Respiratory Rate 22 Blood Pressure 145/96 O2 Sat by Pulse Oximetry 97 Orders Category Date Time Status CT ABD/PELVIS W/IV CONT ONLY [CT] Stat Exams 05/10/19 10:23 Ordered AMYLASE [CHEM] Stat Lab 05/10/19 10:24 Ordered CBC WITH ELECTRONIC DIFF [HEME] Stat Lab 05/10/19 10:24 Ordered COMPREHENSIVE METABOLIC PANEL [CHEM] Stat Lab 05/10/19 10:24 Ordered LIPASE [CHEM] Stat Lab 05/10/19 10:24 Ordered TROPONIN T Stat Lab 05/10/19 10:11 Ordered URINALYSIS W/POSS RFLX CULT [URINALYSIS] Stat Lab 05/10/19 10:10 Uncollected Hydromorphone [Dilaudid] Med 05/10/19 10:23 Discontinued 1 mg IV NOW ONE Ondansetron [Zofran] Med 05/10/19 10:23 Once 4 mg IV NOW ONE EKG [EKG] Stat Ther 05/10/19 10:08 Ordered Result Diagrams: 05/10/19 10:32 05/10/19 10:32 - EKG 1 Time of EKG reading by physician:: 10:12 EKG Read and Signed by:: Kendell Shahid EKG Interpretation (*Must complete 3 of following elements*): Normal Rate: 53 Rhythm: Sinus bradycardia QRS: normal HI Interval: normal - CT/MRI 1 CT Study: Abdomen Impression: See EMR Report (IMPRESSION: Severe acute pancreatitis with indistinct retroperitoneal fluid. This exam was performed using automated exposure control, adjustment of mA or kV according to patient size, and/or use of iterative reconstruction technique Electronically signed by Sincere Montague 05/10/2019 11:49 AM) - CONSULTS/PCP/HOSPITALIST Notification #1 *Consult/PCP/Hospitalist*: Lig[facility]/[employer]ENTATIVE Time Discussed: 11:56 Consult Disposition: Admit (accepted pt) Departure - Departure Date of Disposition Decision: 05/10/19 Time of Disposition Decision: 11:56 DIAGNOSIS: Acute pancreatitis Disposition: ADMITTED INPATIENT 09 Certified Medical Emergency: Emergent Condition: Fair Additional Instructions: ED Follow Up Instructions: You have been treated by a care provider in the Emergency Department. These instructions are being provided to you so you can have an understanding of how to care for yourself upon discharge. Upon discharge from the Emergency Department, you are responsible for making arrangements for follow-up care by a physician of your choice. Take all prescribed medications as directed. Return to the Emergency Department immediately for any new or worsening symptoms. You may call the Physician Referral phone number at [phone] to obtain a list of Physicians who are taking new patients. Referrals and Follow-Ups: Dell Johnson MD [Primary Care Provider] - - Critical Care Note This patient required my direct & personal management of CC.: No Attestation - Physician/ CASSIE Attestation Patient care was provided by Advanced Practice Provider:: No The physician spent face to face time with patient:: Yes Advanced Practice Provider documentation review:: Supervising physician onsite and consulted in the evaluation and care of this patient. The physician did have a face to face encounter with the patient. This chart was documented by the indicated scribe, (Tamica Powers Scribe) and accurately reflects the services I performed and decisions made by me, Kendell Lopez MD, as attested by the provider's signature.
[2019-05-10] MEDS ORDERED: TYLENOL PO PRN (12:16)
[2019-05-10 12:44] LABS: HEMOGLOBIN A1C 5.3 % (4.8-6.0)
[2019-05-10] MEDS: NORCO-10 PO PRN ×2 (12:44→16:46)
[2019-05-10] MEDS: ZOFRAN IV PRN ×2 (14:15→23:41)
[2019-05-10] MEDS: DILAUDID IV PRN ×3 (14:15→23:41)
[2019-05-10] MEDS: NS 1,000 ML IV SCH ×2 (14:16→23:42)
--- NOTE | 2019-05-10 15:48 | Diag Imaging Result Doc PS360 ---
EXAM: US ABDOMEN-COMPLETE INDICATION: abd pain; pancreatitis COMPARISON: 02/06/2019 FINDINGS: There has been a prior cholecystectomy. The common bile duct is normal in diameter. The liver is grossly unremarkable. Portal venous flow is hepatopetal. The pancreas is poorly visualized. The visualized portion is heterogeneous, which could indicate pancreatitis. No discrete peripancreatic fluid collections can be identified by ultrasound. The aorta and IVC are grossly unremarkable. The spleen is unremarkable. The kidneys are grossly unremarkable. IMPRESSION: Somewhat heterogeneous pancreatic parenchyma, which could represent pancreatitis. Electronically signed by Akash Zapata 05/10/2019 3:46 PM
--- NOTE | 2019-05-10 18:01 | HISTORY AND PHYSICAL ---
PRIMARY CARE PROVIDER: Dell Johnson. CHIEF COMPLAINT: Abdominal pain. HISTORY OF PRESENT ILLNESS: Mr. Dia Pearce is a 59-year-old male with a medical history of nephrolithiasis, hyperlipidemia, GERD and gallstone pancreatitis most recently diagnosed late January early February this year now status post cholecystectomy per Dr. Friedman. His pancreatitis at that time resolved but he presents with complaints that started at 2 a.m. and woke him from sleep of severe epigastric abdominal pain that radiated all the way down to lower abdomen. Imaging reveals that he once again has pancreatitis. It does not show any obstructive type of pancreatitis. Will go ahead and order an abdominal ultrasound. We will treat him with antiemetics and pain medication, IV fluids. PAST MEDICAL HISTORY: 1. Nephrolithiasis. 2. Hyperlipidemia. 3. GERD. 4. History of recent gallstone pancreatitis. SURGICAL HISTORY: 1. Cholecystectomy. 2. Colonic tear that required partial colon resection. 3. Inguinal hernia repair in the 5th grade. SOCIAL HISTORY: Denies tobacco, alcohol or illicit drug use. He does heavy labor and construction. FAMILY HISTORY: Father's side of the family there was lung cancer. Mother side had coronary artery disease, stroke and hypertension. ALLERGIES: No known drug allergies. HOME MEDICATIONS: 1. Lansoprazole 30 mg p.o. nightly. 2. Pravachol 40 mg p.o. nightly. 3. [place] 10 one tab p.o. every 4 to 6 hours p.r.n. REVIEW OF SYSTEMS: Fourteen point review of systems are complete and all were negative for those mentioned above HPI. He did have emesis once this morning but it was secondary to taking ibuprofen on a empty stomach, otherwise all are negative. PHYSICAL EXAMINATION: VITAL SIGNS: Temperature 97.8 degrees, heart rate 52, respiratory rate 18, blood pressure 143/77, O2 saturation 97% on room air, 6 foot 0 inch tall, 216 pounds with a BMI of 29.4. GENERAL: Mr. Dia Pearce a 59-year-old male he is in no acute distress. He is able to answer questions appropriately. HEENT: Atraumatic, normocephalic. Pupils equal, round, reactive to light. Extraocular movements intact. Mucous membranes are dry. NECK: Trachea midline. CARDIOVASCULAR: S1, S2, bradycardic rate and rhythm. No rubs, gallops, murmurs, no lower extremity edema. +2 dorsalis and pedal pulses. Negative JVD or carotid bruits. PULMONARY: Clear to auscultate, bilateral breath sounds, no accessory muscle use or work of breathing noted . GI: Soft tender epigastric all the way down by the bilateral sides of the umbilicus to the lower abdomen with palpation. Hypoactive bowel sounds, nondistended. NEUROLOGIC: A and O x3, follows commands, sensory is intact. EXTREMITIES: Moves all extremities equally. Full range of motion . SKIN: Warm, dry, intact. LABORATORY DATA: White blood cell 13,000, hemoglobin 15, hematocrit 44, platelet count 248,000. Sodium 139, potassium 4.0, BUN 14, creatinine 0.9, glucose 109. Hemoglobin A1c 5.3, calcium 9.5, bilirubin 0.76, AST 27, ALT 28, troponin less than 0.01, albumin is 4.5, triglycerides 101, total cholesterol is 160, HDL 69. Amylase is 1879, lipase is 2174. Urinalysis 100 protein, 20 ketones, 3 urobilinogen. IMAGING: Abdominal pelvic CT severe acute pancreatitis with indistinct retroperitoneal fluid. EKG sinus bradycardia, rate 53, QTc is 439. ASSESSMENT AND PLAN: 1. Acute pancreatitis with normal cholesterol non alcoholic drinking and most recently had a gallstone pancreatitis so there is concern that there is another gallstone or a stone that is causing blockage resulting in pancreatitis. Will do IV fluids, antiemetics, morphine for pain control and will get ultrasound to evaluate, if we need to we can reconsult Dr. Friedman. 2. Hyperlipidemia, continue statin. 3. Gastroesophageal reflux disease. Continue proton pump inhibitor. 4. Deep venous thrombosis prophylaxis SCDs. Dictated by SHYANN Bryant for Ander Murphy MD cc: SHYANN Bryant MD 59 y/o patient presenting with abdominal pain. Lipase level elevated . Diagnosed with Acute pancreatitis. I agree with the assessment and plan of the SHYANN. Dr.Okinedo GARCIA
[2019-05-10] MEDS: PRILOSEC PO SCH (22:28)
[2019-05-10] MEDS: PRAVACHOL PO SCH (22:28)
[2019-05-11] MEDS: ZOFRAN IV PRN ×5 (03:43→23:42)
[2019-05-11] MEDS: DILAUDID IV PRN ×5 (03:43→23:42)
[2019-05-11 07:41] LABS: BASO# 0.01 X1000 (0.0-0.2); BASO% 0.1 % (0.0-0.8); HEMOGLOBIN 15.8 g/dL (14.0-18.0); IMM GRAN# 0.03 X1000 (0.0-0.04); IMM GRAN% 0.2 % (0.0-0.5); LYMPH# 0.99 X1000 (1.2-3.4); LYMPH% 6.1 % (20.5-51.1); MCH 27.8 PG (27-31); MCHC 32.9 g/dL (33-37); MCV 84.4 FL (81-99); MONO# 0.98 X1000 (0.11-0.59); MPV 9.5 FL (7.4-10.4); NEUT# 14.28 X1000 (1.4-6.5); NEUT% 87.6 % (42.2-75.2); PLT 257 X1000 (130-400); RBC 5.69 XMIL (4.7-6.1); RDW 13.8 % (11.5-14.5); WBC 16.29 X1000 (4.8-10.8)
[2019-05-11] MEDS: NS 1,000 ML IV SCH ×3 (07:48→22:31)
[2019-05-11 08:02] LABS: AGAP 14; ALB/GLOB RATIO 1.4; ALBUMIN 4.1 g/dL (3.5-5.0); ALKALINE PHOSPHATASE 69 U/L (32-122); BUN 18 mg/dL (8-22); CALCIUM 8.4 mg/dL (8.8-10.2); CHLORIDE 102 mmol/L (98-107); COSMO 286; CREATININE 0.9 mg/dL (0.7-1.2); ESTIMATED GFR > 60; GLUCOSE 117 mg/dL (70-104); GOT 23 U/L (10-34); GPT 22 U/L (10-44); MAGNESIUM 1.7 mg/dL (1.5-2.7); POTASSIUM 4.6 mmol/L (3.5-5.1); SODIUM 142 mmol/L (136-145); TCO2 26 mmol/L (25-35)
[2019-05-11 08:17] LABS: AMYLASE 1460 U/L (20-200); LIPASE 1484 U/L (13-60)
[2019-05-11 08:26] LABS: LYMPHS 30 % (21-51); MONO 6 % (1-9); SEGS 64 % (42-75)
[2019-05-11] MEDS: NORCO-10 PO PRN (09:41)
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
[2019-05-11] MEDS: MIRALAX PO SCH (11:54)
--- NOTE | 2019-05-11 13:53 | GASTROENTEROLOGY CONSULTATION ---
DATE: 05/11/2019 REASON FOR CONSULTATION: Pancreatitis. HISTORY OF PRESENT ILLNESS: Mr. Pearce is a 59-year-old male with a past medical history of acid reflux disease, gallstone pancreatitis, nephrolithiasis and hyperlipidemia, who was recently in the hospital and had a cholecystectomy done on , 02/08/2019. He did mention that his pancreatitis at that time had been resolved, but he said it has triggered again, on Friday morning he started having abdominal pain in the epigastric area radiating all the way to the lower abdomen and the back with nausea, vomiting. The patient denied any fever, chills or shortness of breath. His WBC was 13.92 on admission, and his amylase and lipase was 1879 and 2174. All of his other labs were unremarkable. Abdominal ultrasound showed somewhat heterogeneous pancreatic parenchyma which could represent pancreatitis. Abdomen and pelvis CT showed severe acute pancreatitis with indistinct retroperitoneal fluid. PAST MEDICAL HISTORY: Nephrolithiasis, hyperlipidemia, GERD, gallstone pancreatitis. PAST SURGICAL HISTORY: Cholecystectomy, colonic tear that required partial colon resection, inguinal hernia repair when he was a child. SOCIAL HISTORY: He denies any alcohol, tobacco or illicit drugs. He is , and he does heavy labor construction work. FAMILY HISTORY: His mother had coronary artery disease, stroke and hypertension. Father's family's side had lung cancer. ALLERGIES: No known drug allergies. HOME MEDICATIONS: Pravastatin 40 mg at bedtime, lansoprazole 30 mg a bedtime, hydrocodone/acetaminophen 10/325 mg 1 tablet every 4 to 6 hours p.r.n. REVIEW OF SYSTEMS: As per HPI. Otherwise, a 12-point review of systems is negative. PHYSICAL EXAMINATION: Vital signs: Temperature is 98.4, pulse 78, blood pressure 141/85, oxygen saturation 91% on room air. The patient's weight is 216 pounds, BMI is 21.4 kg per m sq. General: He is alert and oriented x3 and in no acute distress, answering questions appropriately. HEENT: Pale conjunctivae. No icterus. PERRL. Neck: Supple. Lungs: Clear to auscultation in the anterior lopez. Cardiovascular: Regular rate and rhythm. Abdomen: Distended, tender in the epigastric area and the lower abdominal area. Hypoactive bowel sounds heard in all 4 quadrants. Extremities: No clubbing, no cyanosis, no edema. Pedal pulses 2+ present bilaterally. Neurologic: He is alert and oriented x3. Nonfocal. Cranial nerves II through XII grossly intact. DIAGNOSTIC DATA: WBC is 16.29, RBC is 5.69, hemoglobin 15.8, hematocrit 48.0, platelet count 257. Sodium is 142, potassium 4.6, chloride 102, CO2 26, anion gap 14, BUN is 18, creatinine 0.9, glucose 117, calcium 8.4, magnesium 1.7, total bilirubin 1.00, AST is 23, ALT is 22, alkaline phosphatase 69. Triglycerides 101, cholesterol 160, LDL cholesterol direct 95, VLDL cholesterol 20. Amylase 1460 and lipase 1484. Urinalysis showed protein of 100, ketones 20. IMPRESSION: 1. Acute pancreatitis. 2. Gastroesophageal reflux disease. 3. Nausea and vomiting. 4. Abdominal pain. 5. S/P cholecystectomy PLAN: Mr. Pearce is a 59 year old male with the history of gallstone pancreatitis and s/p cholecystectomy, GI has been consulted for his pancreatitis. Patient is currently on IV fluids normal saline at 125 mL, antiemetics Zofran 4 mg PRN. The patient is on GI prophylaxis 40 mg Prilosec p.o. for his GERD. For his bowel regimen, we have started him on MiraLAX 17 g p.o. daily. Patient is currently NPO except medication. We have also ordered an IgG subclass and will plan to do an MRCP tomorrow. We will continue to monitor the patient and follow the plan of care per PCP. This plan was discussed with Dr. Gamino. Thank you for your consult. Please call us for any further questions or concerns. Dictated by SHYANN Degroot for Etienne Gamino MD Physician Attestation I have seen and examined the patient. I have discussed and reviewed the note by Francheska BOOTHE and agree with findings and plan as documented. In brief, Mr. Dia Pearce is a 59 year old man with h/o GERD, gallstones s/p CCY, and obesity who presented with acute uncomplicated pancreatitis. MRCP shows pancreatic divisum. Continue supportive care with NPO status, IVFs, antiemetics, and analgesics. Will start bowel regimen. Will start clear liquids in AM. Will plan to refer to [facility] for sphincterotomy of the minor papillae with the hopes of preventing recurrence. IgG4 pending. TG were WNL. Do not trend lipase/amylase. MTDD
--- NOTE | 2019-05-11 14:27 | Diag Imaging Result Doc PS360 ---
EXAM: MRI MRCP (ABD W/O CONTRAST) 05/11/2019 HISTORY: pancreatitis rule out stricture TECHNIQUE: Axial T2, water 3-D in an out of phase T1, MRCP MIPS, radial T2 and 3-D coronal MRCP, coronal T2 and water 3-D. COMMENT: There is ascites. This was not present at the time of the previous CT of 05/10/2019. There are edematous changes in the retroperitoneal fat in the pararenal spaces bilaterally and in the perirenal spaces. There is phlegmonous change around the pancreas. The common bile duct measures less than 7 mm in diameter. The pancreatic duct does not appear to be distended. The pancreatic duct is not confluent with the distal common bile duct nor do they enter the duodenum at the same ampulla. IMPRESSION: Variant anatomy of the pancreatic duct as described. Pancreatitis as demonstrated on previous CT of 05/10/2019. The possibility of a stone or other obstruction in the distal pancreatic duct cannot be excluded. Electronically signed by Bj Chinchilla 05/11/2019 2:25 PM
--- NOTE | 2019-05-11 20:28 | GENERAL SURGERY CONSULTATION ---
DATE: 05/11/2019 REQUESTING PHYSICIAN: Dr. Zarco. REASON FOR CONSULTATION: Pancreatitis. HISTORY OF PRESENT ILLNESS: This is a 59-year-old gentleman well known to me who was diagnosed with gallstone pancreatitis in late January or early February. I did a cholecystectomy on him, which he had no real issues with. He had been doing well, but then developed sudden-onset severe epigastric pain and came to the emergency department, found to have pancreatitis. He has been admitted and started on IV fluids and has improved clinically. Given the fact that he has had recurrent pancreatitis, I was asked to weigh in an opinion. His LFTs are not elevated to suggest he still has a blocked common bile duct. GI has also been consulted. PAST MEDICAL HISTORY: Kidney stones, hyperlipidemia, gastroesophageal reflux disease, history of gallstone pancreatitis. PAST SURGICAL HISTORY: Includes cholecystectomy, previous colonic tear, inguinal hernia repair. SOCIAL HISTORY: Denies alcohol, tobacco, or illicit drugs. FAMILY HISTORY: Lung cancer. ALLERGIES: None. HOME MEDICATIONS: Reviewed. REVIEW OF SYSTEMS: A full 14 systems were reviewed and negative except as specified in HPI. PHYSICAL EXAMINATION: Vital Signs: Patient is currently afebrile. His vital signs are stable. General: No acute distress. Alert, interactive, male who looks stated age. HEENT: Normocephalic, atraumatic. Pupils equal, round, reactive to light. Mucous membranes moist. Oropharynx benign. Neck: Supple. Trachea midline. Cardiovascular: Regular rate and rhythm. Lungs: Grossly clear. Abdomen: Soft. Some tenderness to palpation, epigastric, but no peritoneal signs. Extremities: Moves all extremities. Neurologic: Grossly intact. Skin: No signs of jaundice. Vascular: All extremities perfused. LABORATORY: Reviewed. White blood cell count 16. Remainder of labs reviewed. Bilirubin, AST, ALT and alkaline phosphatase are all normal. Amylase and lipase are still over 1000. ASSESSMENT/PLAN: A 59-year-old gentleman with recurrent pancreatitis. At this time, we will go ahead and order an MRI and MRCP. Will evaluate for any kind of pancreatic stricture. He does not have a cholestatic pattern suggesting he has another obstruction. We will follow up his MRI. If he does have a stricture, may need to get GI to do an ERCP, but they have already been consulted, and we will follow up with their recommendation. I will continue to follow while he is in the hospital. cc: Destin Friedman MD
[2019-05-11] MEDS: PRILOSEC PO SCH (22:31)
[2019-05-11] MEDS: PRAVACHOL PO SCH (22:31)
[2019-05-12] MEDS: DILAUDID IV PRN ×4 (05:09→19:54)
[2019-05-12] MEDS: ZOFRAN IV PRN ×4 (05:09→19:57)
[2019-05-12] MEDS: NS 1,000 ML IV SCH ×2 (07:13→15:36)
[2019-05-12 07:56] LABS: BASO# 0.02 X1000 (0.0-0.2); BASO% 0.1 % (0.0-0.8); EOS# 0.02 X1000 (0.0-0.7); EOS% 0.1 % (0.0-10.0); HEMATOCRIT 47.9 % (42.0-52.0); HEMOGLOBIN 15.3 g/dL (14.0-18.0); IMM GRAN% 0.4 % (0.0-0.5); LYMPH# 1.79 X1000 (1.2-3.4); MCHC 31.9 g/dL (33-37); MCV 87.6 FL (81-99); MONO# 1.87 X1000 (0.11-0.59); MONO% 8.4 % (1.7-9.3); MPV 9.5 FL (7.4-10.4); NEUT# 18.57 X1000 (1.4-6.5); PLT 276 X1000 (130-400); RBC 5.47 XMIL (4.7-6.1); RDW 14.3 % (11.5-14.5); WBC 22.37 X1000 (4.8-10.8)
[2019-05-12 08:06] LABS: AGAP 11; ALB/GLOB RATIO 1.1; ALBUMIN 3.6 g/dL (3.5-5.0); ALKALINE PHOSPHATASE 71 U/L (32-122); BUN 19 mg/dL (8-22); CALCIUM 8.3 mg/dL (8.8-10.2); CHLORIDE 104 mmol/L (98-107); COSMO 284; CREATININE 0.8 mg/dL (0.7-1.2); ESTIMATED GFR > 60; GLUCOSE 101 mg/dL (70-104); GOT 20 U/L (10-34); GPT 17 U/L (10-44); MAGNESIUM 1.9 mg/dL (1.5-2.7); SODIUM 141 mmol/L (136-145); TCO2 26 mmol/L (25-35); TOTAL PROTEIN 6.8 g/dL (6.3-8.3)
[2019-05-12 08:53] LABS: LYMPHS 14 % (21-51); MONO 2 % (1-9); SEGS 82 % (42-75)
[2019-05-12] MEDS: MIRALAX PO SCH (10:00)
--- NOTE | 2019-05-12 11:02 | GASTROENTEROLOGY PROGRESS NOTE ---
DATE: 05/12/2019 SUBJECTIVE: Mr. Pearce is a 59-year-old male, resting in bed. Family at the bedside. The patient complained of being nauseated, but has denied any vomiting, and does have generalized abdominal tenderness. OBJECTIVE: Vital Signs: Temperature 98.5 degrees, pulse 69, respirations 15, blood pressure 119/71, oxygen saturation 90%. He is on 2 L nasal cannula. His weight is 216 pounds. BMI is 29.4 kg/m2. General: He is alert and oriented x3, and in no acute distress. HEENT: Pale conjunctivae. No icterus. PERRL. Neck: Supple. Lungs: Clear to auscultation in the anterior lopez. Cardiovascular: Regular rate and rhythm. Abdomen: Distended, tender all over, soft. Hypoactive bowel sounds heard in all 4 quadrants. Extremities: No clubbing, no cyanosis, no edema. Pedal pulses 2+ present bilaterally. Neurologic: He is alert and oriented x3. IMAGING AND LABORATORY DATA: WBC is 22.37, RBC 5.47, hemoglobin 15.3, hematocrit 47.9, platelet count 276,000. Sodium 141, potassium 4.0, chloride 104, carbon dioxide 26, anion gap 11, BUN 12, creatinine 0.8, glucose 101, calcium 8.3. Magnesium 1.9. Bilirubin 0.80, AST 20, ALT 17, alkaline phosphatase 71, albumin 3.6. An MRCP was done yesterday, and it showed that there is a possibility of a stone or other obstruction in the distal pancreatic duct that cannot be excluded. IMPRESSION AND PLAN: Acute pancreatitis GERD Nausea and Vomiting Abdominal Pain S/P Cholecystectomy PLAN: Mr. Pearce is a 59-year-old male with a history of gallstone pancreatitis and status post cholecystectomy. GI is following him acute pancreatitis. The patient is currently on intravenous fluids, normal saline at 125 mL. For his nausea and vomiting, he is receiving antiemetic, Zofran. The patient is also getting GI prophylaxis, Prilosec 40 mg at bedtime. He is on a bowel regimen, MiraLAX. For his pain, he is on Dilaudid. Patient is still complaining of nausea, we will continue him with clear liquids. We will continue to monitor the patient, and follow the plan of care per PCP. This plan was discussed with Dr. Gamino. Please call us for any further questions or concerns. Dictated by SHYANN Degroot for Etienne Gamino MD Physician Attestation I have seen and examined the patient. I have discussed and reviewed the note by Francheska BOOTHE and agree with findings and plan as documented. In brief, Mr. Dia Pearce is a 59 year old man with h/o GERD, gallstones s/p CCY, and obesity who presented with acute uncomplicated pancreatitis in the setting of pancreatic divisum. He reports improving abdominal pain, but appears to be oversedated this morning with dilaudid. Recommend weaning his pain meds and advancing to low fat diet as tolerated. Mild to moderate epigastric pain. No peritonitis. He has rising WBC likely from demarginalization. VSS, Afebrile. Will hold off on antibiotics. Continue supportive care. We are planning outpatient referral to [facility] for sphincterotomy of the minor papillae with the hopes of preventing recurrence. IgG4 pending. No need to trend lipase. MTDD
--- NOTE | 2019-05-12 13:40 | GENERAL SURGERY PROGRESS NOTE ---
DATE: 05/12/2019 SUBJECTIVE: Patient seems to be doing okay, a little bit better. OBJECTIVE: Vital Signs: Patient's current temperature 99.7 degrees. Remainder of vital signs appear stable. General: On exam, in no acute distress. HEENT: Normocephalic, atraumatic. Pupils equal, round, reactive to light. Mucous membranes moist. Oropharynx benign. Neck: Supple. Trachea midline. Cardiovascular: Regular rate and rhythm. Lungs: Grossly clear. Abdomen: Soft. Still somewhat tender in the epigastric region. No peritoneal signs. Extremities: Moves all extremities. Neurologic: Grossly intact. Skin: No signs of jaundice. Vascular: All extremities perfused. LABORATORY: Reviewed from yesterday. An MRI and MRCP reviewed from yesterday and showed what looks like almost pancreas divisum. ASSESSMENT AND PLAN: A 59-year-old gentleman with pancreatitis, likely related to a variant of pancreas divisum. Pancreatitis. At this time, I agree with supportive care. He is having a little low-grade fever and had a leukocytosis. This could be stress related, but if it continues, may need to consider starting him on some antibiotics like a carbapenem to cover potential infected pancreatitis. We will continue to monitor him. At this point, he is on a clear liquid diet and started by the GI team. I think ultimately he needs to probably have an ERCP and sphincterotomy of his minor papilla given the anatomic variation that we are seeing, but this may need to be done at [facility]. Discussed this extensively with Dr. Gamino. We will continue to follow. Continue supportive care. cc: Destin Friedman MD [facility]
--- NOTE | 2019-05-12 15:13 | PROGRESS NOTE ---
DATE: 05/12/2019 SUBJECTIVE: He is very lethargic and a little bit confused. We need to back down on his pain medicine. OBJECTIVE: Vital Signs: Temperature 99.3 degrees, pulse 80, respirations 16, blood pressure 129/69. HEENT: Pupils are equal and round. Lungs: Clear in all lung lopez. Cardiovascular: Regular rate without murmur or S3. Abdomen: There is some left upper quadrant tenderness. : Urine output is 1700 mL. ASSESSMENT AND PLAN: Acute pancreatitis, gastroesophageal reflux disease, nausea, vomiting, abdominal pain, status post cholecystectomy. He had a history of gallstone pancreatitis status post cholecystectomy. It appears that he has pancreatic divisum and continue his bowel regimen. I am going to decrease his Dilaudid and hopefully can change him over to p.o. pain medicines, and we can talk about going home. Likely he has a variant of pancreas divisum, so we will decrease his Dilaudid. cc: Daquan Zarco MD
[2019-05-12] MEDS: NORCO-10 PO PRN (22:14)
[2019-05-13] MEDS: ZOFRAN IV PRN ×4 (00:13→18:58)
[2019-05-13] MEDS: DILAUDID IV PRN ×7 (00:14→22:30)
[2019-05-13] MEDS: PRAVACHOL PO SCH ×2 (01:52→21:05)
[2019-05-13] MEDS: PRILOSEC PO SCH ×2 (01:54→21:05)
[2019-05-13] MEDS: NS 1,000 ML IV SCH ×5 (03:20→22:30)
[2019-05-13 07:20] LABS: BASO# 0.01 X1000 (0.0-0.2); BASO% 0.1 % (0.0-0.8); EOS# 0.07 X1000 (0.0-0.7); EOS% 0.5 % (0.0-10.0); HEMATOCRIT 41.2 % (42.0-52.0); HEMOGLOBIN 13.3 g/dL (14.0-18.0); LYMPH# 0.64 X1000 (1.2-3.4); LYMPH% 4.8 % (20.5-51.1); MCH 28.1 PG (27-31); MCHC 32.3 g/dL (33-37); MCV 86.9 FL (81-99); MONO# 0.98 X1000 (0.11-0.59); MONO% 7.4 % (1.7-9.3); MPV 9.2 FL (7.4-10.4); NEUT% 87.2 % (42.2-75.2); PLT 191 X1000 (130-400); RBC 4.74 XMIL (4.7-6.1); RDW 13.8 % (11.5-14.5)
[2019-05-13 07:33] LABS: AMYLASE 156 U/L (20-200); LIPASE 53 U/L (13-60)
[2019-05-13 07:44] LABS: AGAP 11; ALBUMIN 3.1 g/dL (3.5-5.0); ALKALINE PHOSPHATASE 61 U/L (32-122); BUN 16 mg/dL (8-22); CALCIUM 8.4 mg/dL (8.8-10.2); CHLORIDE 107 mmol/L (98-107); COSMO 287; CREATININE 0.7 mg/dL (0.7-1.2); ESTIMATED GFR > 60; GLUCOSE 108 mg/dL (70-104); GOT 17 U/L (10-34); GPT 13 U/L (10-44); MAGNESIUM 1.9 mg/dL (1.5-2.7); SODIUM 143 mmol/L (136-145); TCO2 25 mmol/L (25-35); TOTAL BILIRUBIN 0.61 mg/dL (0.20-1.00); TOTAL PROTEIN 6.2 g/dL (6.3-8.3)
--- NOTE | 2019-05-13 09:28 | PROGRESS NOTE ---
DATE: 05/13/2019 SUBJECTIVE: He is maybe a little better. I did decrease his pain medicine, cut his Dilaudid down from 2 mg to 1 mg q.3 hours p.r.n., but he still pretty uncomfortable, left upper quadrant discomfort. PHYSICAL EXAMINATION: Vital signs: Remains afebrile, temperature 98 degrees, pulse 80, respirations 15, blood pressure 121/70. HEENT: Pupils are equal and round. Lungs: Clear in all lung lopez. Cardiovascular: Regular rhythm and rate without murmur or S3. Abdomen: Soft. Skin: Warm and dry. Urine output is 3200 mL. ASSESSMENT AND PLAN: Acute on chronic pancreatitis, gastroesophageal reflux disease. Still a good deal of abdominal pain. We will continue to hold him n.p.o. I have reduced his pain medicine a little bit. We will continue fluids at 125 mL an hour. He is getting MiraLAX 17 g daily. LABORATORY DATA: Liver enzymes, transaminases unremarkable. His amylase is down to 156, lipase was down to 53, so maybe start him on a soft diet tomorrow and will see how we do. cc: Daquan Zarco MD
[2019-05-13] MEDS: MIRALAX PO SCH (11:14)
--- NOTE | 2019-05-13 11:21 | GASTROENTEROLOGY PROGRESS NOTE ---
DATE: 05/13/2019 SUBJECTIVE: Mr. Pearce is a 59-year-old, male. He is resting in bed. The patient has mentioned that his nausea is a little better but he still has some abdominal pain on the left upper quadrant and has denied any bowel movements today. OBJECTIVE: Vital signs: Temperature 98.2 degrees, pulse 82, respirations 15, blood pressure 121/70, oxygen saturation 93%. Patient is on 4 L nasal cannula. His weight is 216 pounds. BMI is 29.4 kg/m2. General: He is alert, oriented x3, and in no acute distress. HEENT: Pale conjunctivae. No icterus. PERRL. Neck: Supple. Lungs: Clear to auscultation in the anterior lopez. Cardiovascular: Regular rate and rhythm. Abdomen: Abdomen is firm, distended, tender in the left upper quadrant. Hypoactive bowel sounds heard in all 4 quadrants. Extremities: No clubbing, no cyanosis, no edema. Pedal pulses 2+ present bilaterally. Neurologic: He is alert, oriented x3. LABORATORY DATA: WBC is 13.30, RBC 4.74, hemoglobin 13.3, hematocrit 41.2, platelet count is 191,000. Sodium 143, potassium 4.0, chloride 107, carbon dioxide 125, anion gap is 11, BUN 16, creatinine 0.7, glucose is 108, calcium 8.4. Magnesium 1.9. Total bilirubin is 0.61, AST 17, ALT 13, alkaline phosphatase 61, albumin is 3.1, amylase 156, and lipase is 53. IMAGING: The patient did have an MRCP done on 05/11/2019 and it showed that there is a possibility of the stone or other obstruction in the distal pancreatic duct that cannot be excluded. IMPRESSION: 1. Acute pancreatitis. 2. GERD. 3. Nausea and vomiting 4. Abdominal pain 5. Status post cholecystectomy 6. Pancreatic Divisum PLAN: Mr. Pearce is a 59-year-old, male with a history of gallstone pancreatitis and status post cholecystectomy. GI is following him for his acute pancreatitis. The patient is getting IV fluids, normal saline at 125 mL. He is NPO.except medications with some ice chips, we will continue to monitor him and if his nausea and vomiting is under control we will start him on a diet tomorrow. He is receiving antiemetic Zofran for his nausea and vomiting. He is also getting GI prophylaxis Prilosec 40 mg at bedtime for his GERD. For his bowel regimen, he is on MiraLAX. The patient's WBCs have been trending downward, it is now 13.30. His amylase is 156 and lipase is 53, which has come back to normal. We will continue to provide supportive care to the patient. We had ordered his IgG subclass labs and the IgG subclass 4 is 31.0, which is within the normal limits. The patient needs an ERCP, we will refer him as an outpatient to [facility] for further evaluation and treatment. We will continue to monitor the patient and follow the plan of care per PCP. This plan has been discussed with Dr. Foreman. Please call us for any further questions or concerns. Dictated by SHYANN Degroot for Iron Foreman MD cc: Iron Foreman MD I have seen and examined the patient myself and I agree with the above plan of care. I have discussed the above with the patient and all questions were answered. Please call us with any questions or concerns. RADHA
--- NOTE | 2019-05-13 12:33 | GENERAL SURGERY PROGRESS NOTE ---
DATE: 05/13/2019 SUBJECTIVE: Patient says he is hurting a little bit more today. He is having some back pain, which may be related to his pancreatitis. OBJECTIVE: Vital Signs: Patient is currently afebrile. His T max is 99.8, but his vital signs remain stable. General: No acute distress. HEENT: Normocephalic, atraumatic. Pupils equal, round, and reactive to light. Mucous membranes moist. Oropharynx benign. Neck: Supple. Trachea midline. Cardiovascular: Regular rate and rhythm. Lungs: Grossly clear. Abdomen: Soft. There is some tenderness in the epigastric. No peritoneal signs. Extremities: Moves all extremities. Neurologic: Grossly intact. Skin: No signs of jaundice. Vascular: All extremities perfused. LABORATORY: Reviewed from yesterday. His white blood cell count did go up to 22. ASSESSMENT/PLAN: A 59-year-old gentleman with pancreatitis secondary to pancreas divisum. Pancreatitis. At this time, we will follow up with morning labs. He does continue to have leukocytosis, and a little bit of a left shift. This again may be stress related. We will bump him back down to being NPO since the fact he is having pain. We will recheck an amylase and lipase. If it seems to be trending up again, we may need to consider repeat CAT scan and may need to consider looking to see if there are any areas of pancreatic necrosis. Otherwise, continue supportive care. cc: Destin Friedman MD
[2019-05-13] MEDS: NORCO-10 PO PRN (21:04)
[2019-05-13] MEDS ORDERED: DULCOLAX PR ONE (22:09)
[2019-05-13] MEDS ORDERED: PHENERGAN IV ONE (22:10)
[2019-05-13] MEDS ORDERED: SODIUM CHLORIDE 0.9% INJ ONE (22:10)
[2019-05-14] MEDS: NS 1,000 ML IV SCH ×3 (03:32→20:19)
[2019-05-14] MEDS: ZOFRAN IV PRN ×5 (03:52→20:13)
[2019-05-14] MEDS: DILAUDID IV PRN ×5 (03:52→20:13)
--- NOTE | 2019-05-14 06:18 | Diag Imaging Result Doc PS360 ---
ABDOMEN FLAT/UPRIGHT - 05/13/2019 INDICATION: constipation COMPARISON: None FINDINGS: There are cholecystectomy clips. There is perhaps mild constipation of the ascending colon. Remainder of the colon appears normal. No bowel obstruction. No free air or abnormal calcifications. IMPRESSION: Perhaps mild constipation. Electronically signed by Sincere Montague 05/14/2019 6:16 AM
[2019-05-14 07:02] LABS: BASO# 0.01 X1000 (0.0-0.2); BASO% 0.1 % (0.0-0.8); EOS# 0.11 X1000 (0.0-0.7); EOS% 0.9 % (0.0-10.0); HEMATOCRIT 39.1 % (42.0-52.0); HEMOGLOBIN 12.4 g/dL (14.0-18.0); IMM GRAN# 0.02 X1000 (0.0-0.04); IMM GRAN% 0.2 % (0.0-0.5); LYMPH# 0.66 X1000 (1.2-3.4); LYMPH% 5.6 % (20.5-51.1); MCH 27.7 PG (27-31); MCHC 31.7 g/dL (33-37); MCV 87.3 FL (81-99); MONO# 1.21 X1000 (0.11-0.59); MONO% 10.2 % (1.7-9.3); NEUT# 9.84 X1000 (1.4-6.5); PLT 226 X1000 (130-400); RBC 4.48 XMIL (4.7-6.1); RDW 13.6 % (11.5-14.5); WBC 11.85 X1000 (4.8-10.8)
[2019-05-14 07:41] LABS: AGAP 12; ALB/GLOB RATIO 0.8; ALBUMIN 2.7 g/dL (3.5-5.0); ALKALINE PHOSPHATASE 80 U/L (32-122); BUN 15 mg/dL (8-22); CALCIUM 8.5 mg/dL (8.8-10.2); CHLORIDE 106 mmol/L (98-107); COSMO 286; CREATININE 0.7 mg/dL (0.7-1.2); ESTIMATED GFR > 60; GLUCOSE 94 mg/dL (70-104); GOT 26 U/L (10-34); GPT 17 U/L (10-44); MAGNESIUM 1.9 mg/dL (1.5-2.7); POTASSIUM 3.9 mmol/L (3.5-5.1); SODIUM 143 mmol/L (136-145); TCO2 25 mmol/L (25-35); TOTAL BILIRUBIN 0.59 mg/dL (0.20-1.00); TOTAL PROTEIN 6.3 g/dL (6.3-8.3)
[2019-05-14] MEDS: MIRALAX PO SCH (11:52)
--- NOTE | 2019-05-14 12:26 | GASTROENTEROLOGY PROGRESS NOTE ---
DATE: 05/14/2019 SUBJECTIVE: Mr. Pearce is a 59-year-old, male. He was resting in bed. Family at the bedside. The patient mentioned that he still feels nauseated and his abdominal pain is getting better. The patient has not yet had a bowel movement. OBJECTIVE: Vital Signs: Temperature 99.7, pulse 80, respirations 17, blood pressure 124/71, oxygen saturation 94%. He is on 4 L nasal cannula. The patient's weight is 216 pounds. BMI is 29.4 kg/m2. General: He is alert, oriented x3, in no acute distress. HEENT: Pale conjunctivae. No icterus. PERRL. Neck: Supple. Lungs: Clear to auscultation in the anterior lopez. Cardiovascular: Regular rate and rhythm. Abdomen: Firm, distended, mildly tender in the left upper quadrant. Hypoactive bowel sounds heard in all 4 quadrants. Extremities: No clubbing, no cyanosis, no edema. Pedal pulses 2+ present bilaterally. Neurologic: He is alert and oriented x3. LABORATORY DATA: WBC 11.85, RBC 4.48, hemoglobin 12.4, hematocrit 39.1, platelet count is 226,000. Sodium 143, potassium 3.9, chloride 106, carbon dioxide 25, anion gap 12, BUN 15, creatinine 0.7, glucose 94, calcium 8.5, magnesium 1.9, total bilirubin 0.59, AST 26, ALT 17, alkaline phosphatase 80, albumin 2.7. An abdominal x-ray on 05/13/2019 showed mild constipation. IMPRESSION AND PLAN: 1. Acute pancreatitis. 2. Gastroesophageal reflux disease. 3. Nausea and vomiting. 4. Abdominal pain. 5. Status post cholecystectomy 6. Pancreatic division. PLAN: Mr. Pearce is a 59-year-old, male with a history of gallstone pancreatitis and status post cholecystectomy. GI is following him for his acute pancreatitis. The patient is currently receiving IV fluids, normal saline at 125 mL. He is on a GI prophylaxis, Prilosec 40 mg. For his bowel regimen, he is on MiraLAX 17 g daily. The patient's abdominal x-ray yesterday showed that he has mild constipation. The patient is currently n.p.o. except medications and some ice chips. We will continue his diet in the evening with clear liquids and continue to monitor, and if he is able to tolerate it, we will advance his diet. We will set up an outpatient appointment at [facility] for an ERCP. This plan was discussed with Dr. Gamino. Please call us for any further questions or concerns. Dictated by SHYANN Degroot for Etienne Gamino MD Physician Attestation I have seen and examined the patient. I have discussed and reviewed the note by Francheska BOOTHE and agree with findings and plan as documented. In brief, Mr. Dia Pearce is a 59 year old man with h/o GERD, gallstones s/p CCY, and obesity who presented with acute uncomplicated pancreatitis in the setting of pancreatic divisum. He is improving. Advance to low fat diet as tolerated. Wean opiates. Once able to tolerate solid diet with minimal discomfort, he can go home with GI follow-up in 2 weeks. [facility]
[2019-05-14] MEDS ORDERED: SODIUM CHLORIDE 0.9% INJ PRN (13:47)
[2019-05-14] MEDS ORDERED: PHENERGAN IV PRN (13:47)
--- NOTE | 2019-05-14 14:19 | PROGRESS NOTE ---
DATE: 05/14/2019 SUBJECTIVE: Mr. Pearce is feeling better. He had some good sleep last night. He still is requiring Dilaudid. The stated he got some Phenergan last night that seemed to really help. OBJECTIVE: Vital Signs: Temperature 99.7 degrees, pulse 80, respirations 17, blood pressure 124/70. Eyes: Pupils are equal and round. Lungs: Lungs are clear in all lung lopez. Cardiovascular exam: Regular rhythm and rate without murmur or S3. : Urine output is 2000 mL. ASSESSMENT AND PLAN: 1. Acute pancreatitis, underlying gastroesophageal reflux disease, nausea and vomiting, abdominal pain in left upper quadrant. 2. He has a history of gallstone pancreatitis status post cholecystectomy and appeared to have a variation of pancreatic divisum, but he is improving. He is on MiraLAX for bowel regimen. We will continue the current medication, and advance him tomorrow to a soft diet. MEDICATIONS: He is getting Pravachol 40 mg at bedtime, Prilosec 40 mg at bedtime, Dilaudid he gets 2 mg IV q. 3-4 hours p.r.n., and he gets some Phenergan 12.5 mg at nighttime. I guess I will continue that. Hopefully can advance his diet tomorrow and he can go home. cc: Daquan Zarco MD
--- NOTE | 2019-05-14 16:01 | GENERAL SURGERY PROGRESS NOTE ---
DATE: 05/14/2019 SUBJECTIVE: Patient seems to be doing okay. A little bit of pain last night but was better with some IV Phenergan. OBJECTIVE: Vital Signs: Patient is currently afebrile. His vital signs are stable. General: No acute distress. HEENT: Normocephalic, atraumatic. Pupils equal, round, reactive to light. Mucous membranes moist. Oropharynx benign. Neck: Supple. Trachea midline. Cardiovascular: Regular rate and rhythm. Lungs: Grossly clear. Abdomen: Soft, less tender overall, no peritoneal signs. Extremities: Moves all extremities. Neurologic: Grossly intact. Skin: No signs of jaundice. Vascular: All extremities perfused. LABORATORY: Reviewed from yesterday. His white blood cell count is trending down, his hematocrit did trend down to 41 also, amylase and lipase are now within normal range. ASSESSMENT/PLAN: 59-year-old gentleman with pancreatitis secondary to pancreas divisum. Pancreatitis. At this time his labs yesterday seem to be showing some improvement. We will continue to monitor and continue supportive care. He is still hurting so will keep him NPO but if he does okay through the course of the day may consider some liquids this evening but otherwise continue to monitor him. cc: Destin Friedman MD
[2019-05-14] MEDS: PRAVACHOL PO SCH (20:16)
[2019-05-14] MEDS: PRILOSEC PO SCH (20:19)
[2019-05-15] MEDS: DILAUDID IV PRN ×2 (00:25→03:48)
[2019-05-15] MEDS: ZOFRAN IV PRN ×3 (00:25→18:21)
[2019-05-15] MEDS: NS 1,000 ML IV SCH ×3 (04:21→20:47)
[2019-05-15] MEDS ORDERED: DILAUDID IV PRN (06:52)
[2019-05-15 07:07] LABS: BASO# 0.02 X1000 (0.0-0.2); BASO% 0.2 % (0.0-0.8); EOS# 0.05 X1000 (0.0-0.7); EOS% 0.4 % (0.0-10.0); HEMATOCRIT 37.3 % (42.0-52.0); HEMOGLOBIN 11.7 g/dL (14.0-18.0); IMM GRAN# 0.09 X1000 (0.0-0.04); IMM GRAN% 0.7 % (0.0-0.5); LYMPH# 0.58 X1000 (1.2-3.4); LYMPH% 4.5 % (20.5-51.1); MCH 27.8 PG (27-31); MCHC 31.4 g/dL (33-37); MCV 88.6 FL (81-99); MONO# 1.33 X1000 (0.11-0.59); MONO% 10.4 % (1.7-9.3); MPV 8.7 FL (7.4-10.4); NEUT# 10.73 X1000 (1.4-6.5); NEUT% 83.8 % (42.2-75.2); PLT 230 X1000 (130-400); RBC 4.21 XMIL (4.7-6.1); RDW 13.7 % (11.5-14.5)
[2019-05-15 07:32] LABS: AGAP 13; ALBUMIN 2.9 g/dL (3.5-5.0); ALKALINE PHOSPHATASE 103 U/L (32-122); BUN 12 mg/dL (8-22); CALCIUM 8.4 mg/dL (8.8-10.2); CHLORIDE 105 mmol/L (98-107); COSMO 287; CREATININE 0.7 mg/dL (0.7-1.2); ESTIMATED GFR > 60; GLUCOSE 97 mg/dL (70-104); GOT 60 U/L (10-34); GPT 35 U/L (10-44); MAGNESIUM 1.9 mg/dL (1.5-2.7); POTASSIUM 3.8 mmol/L (3.5-5.1); SODIUM 144 mmol/L (136-145); TCO2 26 mmol/L (25-35); TOTAL BILIRUBIN 0.71 mg/dL (0.20-1.00); TOTAL PROTEIN 5.8 g/dL (6.3-8.3)
--- NOTE | 2019-05-15 09:39 | PROGRESS NOTE ---
DATE: 05/14/2019 SUBJECTIVE: Mr. Palacio had another good night. The plan is to stop his Dilaudid. He is advanced to soft diet. Seems to be tolerating it well. OBJECTIVE: Vital Signs: Temperature 98.1 degrees, pulse 69, respirations 18, blood pressure 143/71. Eyes: Pupils are equal and round. Lungs: Lungs are clear in all lung lopez. Abdomen: Left upper quadrant is mildly tender. ASSESSMENT AND PLAN: Acute pancreatitis. He has a history of gallstone pancreatitis status post cholecystectomy. He is currently receiving intravenous fluids and he is getting Dilaudid. We will stop the Dilaudid, and let him have the hydrocodone. If he would like to go home this afternoon, we will get that set up. cc: Daquan Zarco MD
[2019-05-15] MEDS: MIRALAX PO SCH (11:17)
[2019-05-15] MEDS: NORCO-10 PO PRN ×2 (12:35→18:15)
[2019-05-15] MEDS: LACTULOSE PO SCH ×2 (12:35→20:48)
--- NOTE | 2019-05-15 20:25 | Diag Imaging Result Doc PS360 ---
EXAM: CHEST-PORTABLE HISTORY: patient request for SOB TECHNIQUE: Single view COMPARISON: 02/05/2019 FINDINGS: Poor inspiratory effort. There are small pleural effusions. There is basilar atelectasis and there may be underlying infiltrates. No cardiomegaly. IMPRESSION: Small pleural effusions with basilar atelectasis and possibly underlying infiltrates Electronically signed by Honorio Norwood 05/15/2019 8:23 PM
--- NOTE | 2019-05-15 20:29 | GENERAL SURGERY PROGRESS NOTE ---
DATE: 05/15/2019 SUBJECTIVE: Patient seems to be doing okay. He tolerated his clear liquids. His pain is better. OBJECTIVE: Vital Signs: Patient is currently afebrile. His vital signs are stable. General: No acute distress. HEENT: Normocephalic, atraumatic. Pupils equal, round, reactive to light. Mucous membranes moist. Oropharynx benign. Neck: Supple. Trachea midline. Cardiovascular: Regular rate and rhythm. Lungs: Grossly clear. Abdomen: Soft, less tender. No peritoneal signs. Extremities: Moves all extremities. Neurologic: Grossly intact. Skin: No signs of jaundice. Vascular: All extremities perfused. LABORATORY: None this morning as of yet. ASSESSMENT AND PLAN: A 59-year-old gentleman with pancreatitis. Pancreatitis: At this time, he is making some clinical improvement. We will advance him to a full liquid diet. Hopefully, he will continue good forward progress, and he can be discharged in the near future if he continues to progress. cc: Destin Friedman MD
[2019-05-15] MEDS: PRILOSEC PO SCH (20:48)
[2019-05-15] MEDS: PRAVACHOL PO SCH (20:48)
[2019-05-16] MEDS: NS 1,000 ML IV SCH (05:57)
[2019-05-16 07:35] LABS: BASO# 0.02 X1000 (0.0-0.2); BASO% 0.2 % (0.0-0.8); EOS% 0.8 % (0.0-10.0); HEMATOCRIT 37.9 % (42.0-52.0); HEMOGLOBIN 12.3 g/dL (14.0-18.0); IMM GRAN# 0.14 X1000 (0.0-0.04); IMM GRAN% 1.1 % (0.0-0.5); LYMPH# 0.77 X1000 (1.2-3.4); LYMPH% 5.8 % (20.5-51.1); MCH 27.5 PG (27-31); MCHC 32.5 g/dL (33-37); MCV 84.8 FL (81-99); MONO# 1.41 X1000 (0.11-0.59); MONO% 10.7 % (1.7-9.3); NEUT# 10.75 X1000 (1.4-6.5); NEUT% 81.4 % (42.2-75.2); PLT 243 X1000 (130-400); RBC 4.47 XMIL (4.7-6.1); RDW 13.2 % (11.5-14.5); WBC 13.19 X1000 (4.8-10.8)
[2019-05-16 07:51] LABS: AGAP 14; ALB/GLOB RATIO 0.8; ALBUMIN 2.7 g/dL (3.5-5.0); ALKALINE PHOSPHATASE 116 U/L (32-122); BUN 10 mg/dL (8-22); CALCIUM 8.3 mg/dL (8.8-10.2); CHLORIDE 101 mmol/L (98-107); COSMO 277; CREATININE 0.6 mg/dL (0.7-1.2); ESTIMATED GFR > 60; GLUCOSE 97 mg/dL (70-104); GOT 64 U/L (10-34); GPT 45 U/L (10-44); MAGNESIUM 1.7 mg/dL (1.5-2.7); POTASSIUM 3.2 mmol/L (3.5-5.1); SODIUM 139 mmol/L (136-145); TCO2 24 mmol/L (25-35); TOTAL PROTEIN 5.9 g/dL (6.3-8.3)
--- NOTE | 2019-05-16 09:25 | PROGRESS NOTE ---
DATE: 05/16/2019 SUBJECTIVE: Mr. Pearce still feels miserable. He is uncomfortable. He is bloated. OBJECTIVE: Vital signs: His temperature is 97.6 degrees, pulse 70, respirations 18, blood pressure 152/82. HEENT: Pupils are equal and round. Lungs: Lungs are clear in all lung lopez. Cardiovascular: Regular rate without murmur or S3. Abdomen: Abdomen is soft. Skin: Skin is warm and dry. DIAGNOSTIC DATA: Chest x-ray shows small pleural effusions, bibasilar atelectasis. ASSESSMENT AND PLAN: He is making some clinical improvement, but the is concerned. He has just general swelling in his abdomen and his extremities. He is off the Dilaudid. I am going to put him back on full liquid diet. I am going to get him to ambulate, move around. I may get an abdominal film as well and KUB just to look to see if there is much constipation. He is getting lactulose twice a day. We stopped his fluid, and we will go back to full liquid diet. cc: Daquan Zarco MD
[2019-05-16] MEDS: LACTULOSE PO SCH (09:40)
[2019-05-16] MEDS: MIRALAX PO SCH (09:40)
[2019-05-16] MEDS: NORCO-10 PO PRN ×2 (10:28→18:31)
--- NOTE | 2019-05-16 10:28 | GENERAL SURGERY PROGRESS NOTE ---
DATE: 05/16/2019 SUBJECTIVE: The patient said he had a rough night, but it sounds like it is more of being uncomfortable in the bed. OBJECTIVE: Vital Signs: Patient is currently afebrile. His vital signs are stable. General: No acute distress. HEENT: Normocephalic, atraumatic. Pupils equal, round, reactive to light. Mucous membranes moist. Oropharynx benign. Neck: Supple. Trachea midline. Cardiovascular: Regular rate and rhythm. Lungs: Grossly clear. Abdomen: Soft. Some minimal distention, less tender from admission overall. No peritoneal signs. Extremities: Moves all extremities. Neurologic: Grossly intact. Skin: No signs of jaundice. Vascular: All extremities perfused. LABORATORY: None this morning as of yet. Chest x-ray from last night reviewed. ASSESSMENT AND PLAN: A 59-year-old with pancreatitis. Pancreatitis. At this time, he has made some clinical improvement. I think he is doing okay overall. If he seems to do okay later today and wants to go home, I do not think this is necessarily inappropriate, so we could potentially send him, but if he has any kind of issues or any kind of issues with pain control, recommend monitoring him another day at least. cc: Destin Friedman MD MTDD
--- NOTE | 2019-05-16 18:29 | GASTROENTEROLOGY PROGRESS NOTE ---
DATE: 05/15/2019 SUBJECTIVE: Mr. Pearce is a 59-year-old male. He was resting in bed. Family at the bedside. The patient was complaining about his abdomen being distended. He mentioned that the pain is mild, but he just feels like he is too bloated. OBJECTIVE: Vital Signs: Temperature is 98.1 degrees, pulse is 69, respirations 18, blood pressure 143/71, oxygen saturation 95% on 2 L nasal cannula. General: He is alert, oriented x3, and in no acute distress. HEENT: Pale conjunctivae. No icterus. PERRL. Neck: Supple. Lungs: Clear to auscultation in the anterior lopez. Cardiovascular: Regular rate and rhythm. Abdomen: Mildly distended and mildly tender in the left upper quadrant. Hypoactive bowel sounds heard in all 4 quadrants. Extremities: No clubbing, no cyanosis. Generalized edema. Pedal pulses 2+ present bilaterally. Neurologic: He is alert, oriented x3. LABORATORY DATA: WBCs 12.80, RBC 4.21, hemoglobin 11.7, hematocrit is 37.3, platelet count is 230,000. Sodium 144, potassium 3.8, chloride 105, carbon dioxide 26, anion gap 13, BUN 12, creatinine 0.7, glucose 97, calcium 8.4, magnesium 1.9, total bilirubin 0.7, AST 60, ALT 35, alkaline phos 103, albumin 2.9. A chest x-ray showed small pleural effusion with basilar atelectasis and possible underlying infiltrate. IMPRESSION AND PLAN: 1. Acute pancreatitis. 2. Gastroesophageal reflux disease. 3. Nausea and vomiting. 4. Abdominal pain 5. S/p cholecystectomy 6. Pancreatic Divisum PLAN: Mr. Pearce is a 59-year-old male with a history of gallstones pancreatitis and status post cholecystectomy. Gastroenterology is following him for his acute pancreatitis. The patient is on a Gl prophylaxis Prilosec 40 mg at bedtime. His nausea and vomiting has been under controlled. The patient is receiving Zofran and Phenergan for his nausea and vomiting. He is on a bowel regimen, MiraLAX 17 g twice a day and lactulose 30 mL. The patient's abdomen is mildly distended and patient feels like he is bloated, but he did mention having 1 bowel movement. We will continue to monitor the patient and follow the plan of care per PCP. We have advised the patient to be out of bed and walking to have bowle motility. This plan was discussed with Dr. Gutiérrez. Please call us for any further questions or concerns. Dictated by SHYANN Degroot for Carlos Gutiérrez MD cc: Carlos Gutiérrez MD MTDD
[2019-05-16] MEDS: PRILOSEC PO SCH (20:05)
[2019-05-16] MEDS: PRAVACHOL PO SCH (20:05)
--- NOTE | 2019-05-16 22:24 | GASTROENTEROLOGY PROGRESS NOTE ---
DATE: 05/16/2019 SUBJECTIVE: Mr. Pearce is a 59-year-old male resting in bed. Family at the bedside. The patient has been complaining of feeling like a bloating sensation and he mentioned that he feels like his abdomen is very distended. OBJECTIVE: Vital Signs: Temperature 97.6 degrees, pulse is 70, respirations 18, blood pressure 152/82, oxygen saturation is 92% on room air. The patient's weight is 206 pounds. BMI is 29.4 kg/m2. General: He is alert, oriented x3 and in no acute distress. HEENT: Pale conjunctivae. No icterus. PERRL. Neck: Supple. Lungs: Clear to auscultation in the anterior lopez. Cardiovascular: Regular rate and rhythm. Abdomen: Mildly firm, mildly distended and tender in the left quadrant. Hypoactive bowel sounds heard in all 4 quadrants. Extremities: No clubbing. No cyanosis. Generalized edema in the lower extremities. Pedal pulses 2+ present bilaterally. Neurologic: He is alert, oriented x3. LABORATORY DATA: WBC is 13.19, RBC is 4.47, hemoglobin 12.3, hematocrit is 37.9, platelet count is 243,000. Sodium 139, potassium 3.2, chloride 101, carbon dioxide 24, anion gap 14, BUN 10, creatinine 0.6, glucose 97, calcium 8.3, magnesium 1.7, total bilirubin 1.0, AST 64, ALT 45, alkaline phosphatase 116, albumin 2.7. A chest x-ray on 05/15/2019 showed small pleural effusion with basilar atelectasis and possible underlying infiltrate. IMPRESSION: 1. Acute pancreatitis. 2. Gastroesophageal reflux disease. 3. Nausea and vomiting. 4. Abdominal pain 5. S/P cholecystectomy 6. Pancreatic divisum. PLAN: Mr. Pearce is a 59-year-old male with a history of gallstone pancreatitis and status post cholecystectomy. GI is following him for his acute pancreatitis. The patient is on GI prophylaxis PPI. His nausea and vomiting have been under control. He is receiving Zofran and Phenergan for his nausea and vomiting. He is on a bowel regimen, MiraLAX 17 g, and we have discontinued his lactulose. The patient abdomen is mildly distended and patient did have 1 bowel movement today. We have advised the patient to be out of bed and walking to have a good bowel motility and to reduce his abdominal discomfort. If the patient is feeling better from the GI standpoint, he can go home. We will continue to monitor the patient and follow the plan of care per PCP. This plan was discussed with Dr. Gutiérrez. Please call us for any further questions or concerns. Dictated by SHYANN Degroot for Carlos Gutiérrez MD cc: Carlos Gutiérrez MD [facility]
--- NOTE | 2019-05-17 06:32 | GENERAL SURGERY PROGRESS NOTE ---
DATE: 05/17/2019 SUBJECTIVE: Patient seems to be doing okay. He is feeling a little better today. He has had bowel movements. OBJECTIVE: Vital Signs: Patient is currently afebrile. His vital signs are stable. General: No acute distress. HEENT: Normocephalic, atraumatic. Pupils equal, round, and reactive to light. Mucous membranes moist. Oropharynx benign. Neck: Supple. Trachea midline. Cardiovascular: Regular rate and rhythm. Lungs: Grossly clear. Abdomen: Soft. Less tender and nondistended. Extremities: Moves all extremities. Neurologic: Grossly intact. Skin: No signs of jaundice. Vascular: All extremities perfused. LABORATORY: Reviewed from yesterday. ASSESSMENT AND PLAN: A 59-year-old with pancreatitis. Pancreatitis. At this time, I think he has made clinical improvement. I think he wants to try to go home today if it is okay from a surgical point of view. He will need to follow up at [facility] for potential ERCP given his pancreas divisum. He seems to be breathing okay, although his O2 sats were a little bit low. His chest x-ray previously had been normal so we will just recommend incentive spirometer. cc: Destin Friedman MD
[2019-05-17 07:26] LABS: BASO# 0.02 X1000 (0.0-0.2); BASO% 0.1 % (0.0-0.8); EOS% 0.7 % (0.0-10.0); HEMATOCRIT 39.2 % (42.0-52.0); HEMOGLOBIN 13.2 g/dL (14.0-18.0); IMM GRAN# 0.26 X1000 (0.0-0.04); IMM GRAN% 1.9 % (0.0-0.5); LYMPH# 0.92 X1000 (1.2-3.4); LYMPH% 6.9 % (20.5-51.1); MCH 27.7 PG (27-31); MCHC 33.7 g/dL (33-37); MCV 82.2 FL (81-99); MONO# 1.06 X1000 (0.11-0.59); MONO% 7.9 % (1.7-9.3); MPV 8.8 FL (7.4-10.4); NEUT# 11.05 X1000 (1.4-6.5); NEUT% 82.5 % (42.2-75.2); PLT 267 X1000 (130-400); RBC 4.77 XMIL (4.7-6.1); RDW 13.1 % (11.5-14.5); WBC 13.41 X1000 (4.8-10.8)
[2019-05-17 07:52] VITALS: BP 168/69
[2019-05-17 07:53] LABS: AGAP 7; ALB/GLOB RATIO 0.7; ALBUMIN 2.6 g/dL (3.5-5.0); ALKALINE PHOSPHATASE 118 U/L (32-122); BUN 8 mg/dL (8-22); CALCIUM 8.5 mg/dL (8.8-10.2); CHLORIDE 100 mmol/L (98-107); COSMO 272; CREATININE 0.5 mg/dL (0.7-1.2); ESTIMATED GFR > 60; GLUCOSE 102 mg/dL (70-104); GOT 35 U/L (10-34); GPT 36 U/L (10-44); MAGNESIUM 1.7 mg/dL (1.5-2.7); POTASSIUM 2.9 mmol/L (3.5-5.1); SODIUM 137 mmol/L (136-145); TCO2 30 mmol/L (25-35); TOTAL BILIRUBIN 0.78 mg/dL (0.20-1.00); TOTAL PROTEIN 6.2 g/dL (6.3-8.3)
[2019-05-17] MEDS: MIRALAX PO SCH (08:18)
[2019-05-17] MEDS: NORCO-10 PO PRN (08:18)
--- NOTE | 2019-05-17 11:47 | GASTROENTEROLOGY PROGRESS NOTE ---
DATE: 05/17/2019 SUBJECTIVE: Mr. Pearce is a 59-year-old, male, resting in bed. Family at the bedside. The patient has denied any nausea, vomiting, or abdominal pain. He said that he feels much, much better and he is ready to go home today. OBJECTIVE: Vital Signs: Temperature 97.9 degrees, pulse 59, respirations 16, blood pressure 168/69, oxygen saturation 98% on room air. The patient's weight is 206 pounds. BMI is 29.4 kg/m2. General: He is alert, oriented x3, and in no acute distress. HEENT: Pale conjunctivae. No icterus. PERRL. Neck: Supple. Lungs: Clear to auscultation in the anterior lopez. Cardiovascular: The patient is bradycardic. Abdomen: Soft, nontender, mildly distended. Active bowel sounds heard in all 4 quadrants. Extremities: No clubbing, no cyanosis, no edema. Pedal pulses 2+ present bilaterally. Neurologic: The patient is alert and oriented x3. LABORATORY DATA: WBCs are 13.41, RBC 4.77, hemoglobin 13.2, hematocrit 39.2, platelet count is 267,000. Sodium 137, potassium 2.9, chloride 100, carbon dioxide 30, anion gap 7, BUN 8, creatinine 0.5, glucose 102, calcium 8.5. Magnesium 1.7. Total bilirubin 0.78, AST 35, ALT 36, alkaline phosphatase 118, albumin is 2.6. IMPRESSION: 1. Acute pancreatitis. 2. Gastroesophageal reflux disease. 3. Nausea and vomiting. 4. Abdominal pain. 5. Status post cholecystectomy. 6. Possible pancreatic divisum. PLAN: Mr. Pearce is a 59-year-old male with a history of gallstone pancreatitis and status post cholecystectomy. GI is following him for his acute pancreatitis. The patient has denied any nausea, vomiting, or abdominal pain. He has been having positive bowel movements. He has had one today. The patient has been out of bed and been walking around. He is receiving Zofran and Phenergan for his nausea and vomiting. Continue on low fat diet for few weeks. The patient mentioned that they have taken out his IV. He is currently on a bowel regimen, MiraLAX 17 grams p.o. daily, and he is receiving GI prophylaxis, Prilosec 40 mg p.o. We will schedule a followup appointment for him at our clinic, and also schedule an appointment at [facility] for possible ERCP for his pancreatic divisum. The patient wants to get it done probably sometime in June. Patient has discharge orders for today. We will continue to monitor the patient and follow the plan of care per PCP. This plan was discussed with Dr. Foreman. Please call us for any further questions or concerns. Dictated by SHYANN Degroot for Iron Foreman MD cc: Iron Foreman MD I have seen and examined the patient myself and I agree with the above plan of care. Discussed the above with the patient and family at bedside and all questions were answered. RADHA
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
== END 2019-05-17 14:48 | disposition home or self-care (01) | DRG 439 ==
LOC: ED 09:57 → 3N 09:58 → SUATTDRO 09:58
PROVIDERS: ATTEND Emergency Medicine